=== PATIENT | female | born 1945 | race Caucasian/White ===

== ENCOUNTER 2020-03-17 13:59 | Inpatient (IN) ==
[2020-03-17] MEDS ORDERED: PIPERACILLIN/TAZOBACTAM 3,375 MG in SODIUM CHLORIDE 0.9% 100 ML IV STA (15:23)
[2020-03-17] MEDS ORDERED: VANCOMYCIN INJ 1,000 MG in SODIUM CHLORIDE 0.9% 250 ML IV STA (15:23)
[2020-03-17] MEDS ORDERED: MEPERIDINE 25 MG/1 ML VIAL IV STA (15:23)
[2020-03-17] MEDS ORDERED: ONDANSETRON 4 MG/2 ML VIAL IV STA (15:23)
[2020-03-17] MEDS ORDERED: SODIUM CHLORIDE 0.9% 1,000 ML IV STA (15:23)
[2020-03-17 16:11] LABS: Basophils % 0.3 % (0.0-0.8); Eosinophils # 0.1 10*3/uL (0.0-0.87); Eosinophils % 0.5 % (0.00-10.9); Hematocrit 40.7 VOL% (35.7-47.0); Immature Granulocytes % 0.4 %; Immature Granulocytes Absolute 0.05 #; Lymphocytes # 2.2 10*3/uL (1.4-4.0); Lymphocytes % 17.1 % (21.3-54.2); Mean Corpuscular HGB Conc 34.4 GM/DL (32-36); Mean Corpuscular Volume 94.7 FL (87-102); Mean Platelet Volume 11.9 FL (9.6-12.0); Monocytes % 8.2 % (1.7-12.7); Neutrophils % 73.5 % (38.7-73.9); Platelet Count 154 T/CUMM (130-400); Red Cell Distribution Width 11.6 % (9.3-17.3); White Blood Count 13.1 T/CUMM (4-12)
[2020-03-17 16:29] LABS: Alanine Aminotransferase 28 U/L (13-56); Albumin 2.9 G/DL (3.4-5.0); Alkaline Phosphatase 169 U/L (45-117); Aspartate Amino Transferase 21 U/L (0-37); Blood Urea Nitrogen 11 MG/DL (7-18); Calcium 8.8 MG/DL (8.5-10.1); Estimated Glom Filtration Rate 65 ML/MIN; Ferritin 153.6 ng/ml (8-252); Glucose 305 MG/DL (74-106); Osmolality,Calculated 275.4 MOS/KG (273-304); Total Protein 7.6 G/DL (6.4-8.3); Troponin I < 0.015 NG/ML (0.00-0.045)
[2020-03-17] MEDS ORDERED: VANCOMYCIN 1,000 MG VIAL ONE (16:51)
[2020-03-17] MEDS ORDERED: POLYETHYLENE GLYCOL POWDER 17 GM PACK PO PRN (18:16)
[2020-03-17] MEDS ORDERED: CHLORHEXIDINE 4% TOP ONE (18:18)
[2020-03-17] MEDS ORDERED: [UNRECOGNIZED DRUG - OTHER] TOP ONE (18:18)
[2020-03-17] MEDS ORDERED: GLUCAGON 1 MG VIAL IM PRN (18:23)
[2020-03-17] MEDS ORDERED: MORPHINE 4 MG/1 ML VIAL IV PRN (18:23)
[2020-03-17] MEDS ORDERED: ONDANSETRON 4 MG/2 ML VIAL IV PRN (18:23)
[2020-03-17] MEDS ORDERED: DEXTROSE 50% 25 GM/50 ML VIAL IV PRN (18:23)
[2020-03-17] MEDS ORDERED: ACETAMINOPHEN 325 MG TABLET PO PRN (18:23)
[2020-03-17] MEDS ORDERED: VANCOMYCIN INJ 1,000 MG in SODIUM CHLORIDE 0.9% 250 ML IV ONE (21:00)
[2020-03-17] MEDS ORDERED: glipiZIDE 5 MG TABLET PO SCH (21:00)
[2020-03-17] MEDS ORDERED: GABAPENTIN 600 MG TABLET PO SCH (21:00)
[2020-03-17] MEDS: cefTRIAXone 2,000 MG in SYRINGE 1 EACH IV SCH (21:49)
[2020-03-17] MEDS: INSULIN GLARGINE 100 UNIT/ML SUBCUT SCH (21:50)
[2020-03-17] MEDS: SODIUM CHLORIDE 0.9% 1,000 ML IV SCH (21:51)
[2020-03-17] MEDS: INSULIN LISPRO 100 UNIT/ML SUBCUT SCH (21:51)
[2020-03-17] MEDS: SIMVASTATIN 10 MG TABLET PO SCH (21:51)
[2020-03-17] MEDS: GABAPENTIN 600 MG TABLET PO SCH (21:51)
[2020-03-18 05:34] LABS: Basophils % 0.3 % (0.0-0.8); Eosinophils # 0.2 10*3/uL (0.0-0.87); Eosinophils % 1.1 % (0.00-10.9); Hematocrit 40.2 VOL% (35.7-47.0); Hemoglobin 13.3 GM/DL (12.0-16.0); Immature Granulocytes % 0.4 %; Immature Granulocytes Absolute 0.06 #; Lymphocytes # 2.7 10*3/uL (1.4-4.0); Lymphocytes % 17.2 % (21.3-54.2); Mean Corpuscular HGB Conc 33.1 GM/DL (32-36); Mean Corpuscular Volume 96.6 FL (87-102); Mean Platelet Volume 11.7 FL (9.6-12.0); Monocytes % 8.4 % (1.7-12.7); Neutrophils % 72.6 % (38.7-73.9); Platelet Count 171 T/CUMM (130-400); Red Blood Count 4.16 MC/CUMM (3.8-5.5); Red Cell Distribution Width 11.5 % (9.3-17.3); White Blood Count 15.9 T/CUMM (4-12)
[2020-03-18 05:56] LABS: Calcium 8.3 MG/DL (8.5-10.1)
[2020-03-18] MEDS: LEVOTHYROXINE 75 MCG TABLET PO SCH (06:30)
[2020-03-18] MEDS: SODIUM CHLORIDE 0.9% 1,000 ML IV SCH ×2 (08:51→21:51)
[2020-03-18] MEDS: NEBIVOLOL 10 MG TABLET PO SCH (08:52)
[2020-03-18] MEDS: INSULIN LISPRO 100 UNIT/ML SUBCUT SCH ×4 (08:52→21:53)
[2020-03-18] MEDS: FEXOFENADINE 180 MG TABLET PO SCH (09:00)
[2020-03-18] MEDS: GABAPENTIN 600 MG TABLET PO SCH ×3 (09:00→21:52)
[2020-03-18] MEDS: ASPIRIN EC 81 MG TABLET PO SCH (09:00)
[2020-03-18] MEDS: LOSARTAN 50 MG TABLET PO SCH (09:00)
[2020-03-18] MEDS ORDERED: DEXTROSE 50% 25 GM/50 ML VIAL IV PRN (10:43)
[2020-03-18] MEDS: MONTELUKAST 10 MG TABLET PO SCH (12:01)
[2020-03-18] MEDS: PANTOPRAZOLE 40 MG TABLET PO SCH (12:01)
[2020-03-18] MEDS: VANCOMYCIN INJ 1,750 MG in SODIUM CHLORIDE 0.9% 500 ML IV SCH (14:35)
[2020-03-18] MEDS: cefTRIAXone 2,000 MG in SYRINGE 1 EACH IV SCH (21:51)
[2020-03-18] MEDS: SIMVASTATIN 10 MG TABLET PO SCH (21:52)
[2020-03-18] MEDS: INSULIN GLARGINE 100 UNIT/ML SUBCUT SCH (21:53)
[2020-03-19 05:22] LABS: Basophils % 0.3 % (0.0-0.8); Eosinophils # 0.2 10*3/uL (0.0-0.87); Eosinophils % 1.5 % (0.00-10.9); Hematocrit 37.8 VOL% (35.7-47.0); Hemoglobin 12.5 GM/DL (12.0-16.0); Immature Granulocytes Absolute 0.11 #; Lymphocytes # 2.8 10*3/uL (1.4-4.0); Lymphocytes % 24.2 % (21.3-54.2); Mean Corpuscular HGB Conc 33.1 GM/DL (32-36); Mean Corpuscular Volume 96.9 FL (87-102); Monocytes % 10.2 % (1.7-12.7); Neutrophils % 62.8 % (38.7-73.9); Platelet Count 179 T/CUMM (130-400); Red Cell Distribution Width 11.6 % (9.3-17.3); White Blood Count 11.5 T/CUMM (4-12)
[2020-03-19 05:50] LABS: Calcium 7.8 MG/DL (8.5-10.1); Osmolality,Calculated 278.5 MOS/KG (273-304)
[2020-03-19] MEDS: LEVOTHYROXINE 75 MCG TABLET PO SCH (06:51)
[2020-03-19] MEDS ORDERED: DIAZEPAM 5 MG TABLET PO ONE (07:12)
[2020-03-19] MEDS: SODIUM CHLORIDE 0.9% 1,000 ML IV SCH ×3 (07:22→22:03)
[2020-03-19] MEDS: INSULIN LISPRO 100 UNIT/ML SUBCUT SCH ×4 (07:40→21:21)
[2020-03-19] MEDS ORDERED: BUPIVACAINE MPF 0.25% 30 ML VIAL ONE (08:08)
[2020-03-19] MEDS ORDERED: LIDOCAINE 1%/EPI INJ 20 ML VIAL ONE (08:08)
[2020-03-19] MEDS ORDERED: propofoL 200 MG/20 ML VIAL IV ONE (09:11)
[2020-03-19] MEDS ORDERED: LIDOCAINE 2% 5 ML VIAL ONE (09:12)
[2020-03-19] MEDS ORDERED: fentaNYL 100 MCG/2 ML VIAL ONE (09:12)
[2020-03-19] MEDS: GABAPENTIN 600 MG TABLET PO SCH ×3 (09:23→21:19)
[2020-03-19] MEDS: FEXOFENADINE 180 MG TABLET PO SCH (09:23)
[2020-03-19] MEDS: ASPIRIN EC 81 MG TABLET PO SCH (09:23)
[2020-03-19] MEDS: PANTOPRAZOLE 40 MG TABLET PO SCH (09:23)
[2020-03-19] MEDS: MONTELUKAST 10 MG TABLET PO SCH (09:24)
[2020-03-19] MEDS: LOSARTAN 50 MG TABLET PO SCH (10:05)
[2020-03-19] MEDS: NEBIVOLOL 10 MG TABLET PO SCH (10:05)
[2020-03-19] MEDS: VANCOMYCIN INJ 1,750 MG in SODIUM CHLORIDE 0.9% 500 ML IV SCH (10:07)
[2020-03-19 14:01] LABS: Apearance,Urine Slightly Hazy (Clear); Bacteria,Urine Occasional /HPF (Few); Bilirubin,Urine Negative (Negative); Blood, Urine Moderate mg/dL (Negative); Glucose,Urine (UA) 50 mg/dL (Negative); Ketones,Urine 5 mg/dL (Negative); Mucus,Urine Few /LPF (Occasional); Nitrite,Urine Negative (Negative); Protein,Urine Negative; RBC,Urine 21 /HPF (0-4); Squamous Epithelial Cell,Urine Occasional /HPF (0-10); Urine Color Yellow (Yellow); Urine Specific Gravity 1.013 (1.001-1.035); WBC,Urine 56 /HPF (0-6)
[2020-03-19] MEDS: SIMVASTATIN 10 MG TABLET PO SCH (21:19)
[2020-03-19] MEDS: cefTRIAXone 2,000 MG in SYRINGE 1 EACH IV SCH (21:20)
[2020-03-19] MEDS: INSULIN GLARGINE 100 UNIT/ML SUBCUT SCH (21:21)
[2020-03-20] MEDS: VANCOMYCIN INJ 1,750 MG in SODIUM CHLORIDE 0.9% 500 ML IV SCH (03:18)
[2020-03-20] MEDS: LEVOTHYROXINE 75 MCG TABLET PO SCH (06:11)
[2020-03-20] MEDS: SODIUM CHLORIDE 0.9% 1,000 ML IV SCH (06:19)
[2020-03-20] MEDS: INSULIN LISPRO 100 UNIT/ML SUBCUT SCH ×2 (07:11→11:29)
[2020-03-20 07:22] LABS: Basophils % 0.4 % (0.0-0.8); Eosinophils # 0.2 10*3/uL (0.0-0.87); Eosinophils % 2.8 % (0.00-10.9); Hematocrit 36.8 VOL% (35.7-47.0); Hemoglobin 12.4 GM/DL (12.0-16.0); Immature Granulocytes % 0.4 %; Immature Granulocytes Absolute 0.03 #; Lymphocytes # 2.2 10*3/uL (1.4-4.0); Mean Corpuscular HGB Conc 33.7 GM/DL (32-36); Mean Corpuscular Volume 95.1 FL (87-102); Mean Platelet Volume 11.6 FL (9.6-12.0); Monocytes % 9.8 % (1.7-12.7); Neutrophils % 58.6 % (38.7-73.9); Platelet Count 184 T/CUMM (130-400); Red Blood Count 3.87 MC/CUMM (3.8-5.5); Red Cell Distribution Width 11.7 % (9.3-17.3); White Blood Count 7.9 T/CUMM (4-12)
[2020-03-20 07:49] LABS: Osmolality,Calculated 281.3 MOS/KG (273-304); Thyroid Stimulating Hormone 5.44 uIU/ml (0.358-3.74)
[2020-03-20] MEDS ORDERED: traMADol 50 MG TABLET PO PRN (08:47)
[2020-03-20] MEDS: NEBIVOLOL 10 MG TABLET PO SCH (08:56)
[2020-03-20] MEDS: LOSARTAN 50 MG TABLET PO SCH (08:56)
[2020-03-20] MEDS: GABAPENTIN 600 MG TABLET PO SCH (08:57)
[2020-03-20] MEDS: PANTOPRAZOLE 40 MG TABLET PO SCH (08:57)
[2020-03-20] MEDS: MONTELUKAST 10 MG TABLET PO SCH (08:57)
[2020-03-20] MEDS: ASPIRIN EC 81 MG TABLET PO SCH (08:57)
[2020-03-20] MEDS: FEXOFENADINE 180 MG TABLET PO SCH (08:57)
[2020-03-20 11:37] VITALS: BP 138/79
[2020-03-21] MEDS ORDERED: EXENATIDE MICROSPHERES 2 MG SUBCUT SCH (09:00)
== END 2020-03-20 14:57 | disposition home or self-care (01) | DRG 264 ==
LOC: N.ED 13:59 → N.EDINP 13:59 → N.3E 20:07
PROVIDERS: ADMIT Internal Medicine; ATTEND Internal Medicine

== ENCOUNTER 2021-03-31 14:44 | Observation (INO) ==
[2021-03-31] MEDS ORDERED: MORPHINE 2 MG/1 ML SYRINGE IV STA (18:47)
[2021-03-31 20:48] LABS: Basophils % 0.4 % (0.0-0.8); Eosinophils # 0.1 10*3/uL (0.0-0.87); Eosinophils % 1.6 % (0.00-10.9); Hematocrit 40.7 VOL% (35.7-47.0); Hemoglobin 13.6 GM/DL (12.0-16.0); Immature Granulocytes % 0.3 %; Immature Granulocytes Absolute 0.02 #; Lymphocytes # 1.9 10*3/uL (1.4-4.0); Lymphocytes % 28.5 % (21.3-54.2); Mean Corpuscular HGB Conc 33.4 GM/DL (32-36); Mean Corpuscular Volume 95.1 FL (87-102); Monocytes % 7.5 % (1.7-12.7); Neutrophils % 61.7 % (38.7-73.9); Platelet Count 174 T/CUMM (130-400); Red Blood Count 4.28 MC/CUMM (3.8-5.5); Red Cell Distribution Width 12.4 % (9.3-17.3); White Blood Count 6.7 T/CUMM (4-12)
[2021-03-31 21:12] LABS: Albumin 3.1 G/DL (3.4-5.0); Calcium 8.7 MG/DL (8.5-10.1); Total Protein 7.7 G/DL (6.4-8.2)
[2021-04-01] MEDS ORDERED: ONDANSETRON 4 MG/2 ML VIAL IV PRN (02:51)
[2021-04-01] MEDS ORDERED: DOCUSATE SODIUM 100 MG CAPSULE PO PRN (02:51)
[2021-04-01] MEDS ORDERED: MORPHINE 2 MG/1 ML SYRINGE IV PRN (02:51)
[2021-04-01] MEDS ORDERED: ACETAMINOPHEN 325 MG TABLET PO PRN (02:51)
[2021-04-01] MEDS ORDERED: GLUCAGON 1 MG VIAL IM PRN (02:51)
[2021-04-01] MEDS ORDERED: DEXTROSE 50% 25 GM/50 ML VIAL IV PRN (02:51)
[2021-04-01] MEDS ORDERED: POLYETHYLENE GLYCOL POWDER 17 GM PACK PO PRN (02:58)
[2021-04-01] MEDS ORDERED: traMADol 50 MG TABLET PO PRN ×2 (02:58→10:15)
[2021-04-01 04:29] LABS: Basophils % 0.5 % (0.0-0.8); Eosinophils # 0.1 10*3/uL (0.0-0.87); Hematocrit 35.8 VOL% (35.7-47.0); Hemoglobin 12.2 GM/DL (12.0-16.0); Immature Granulocytes % 0.3 %; Immature Granulocytes Absolute 0.02 #; Lymphocytes # 1.9 10*3/uL (1.4-4.0); Lymphocytes % 32.7 % (21.3-54.2); Mean Corpuscular HGB Conc 34.1 GM/DL (32-36); Mean Corpuscular Volume 94.2 FL (87-102); Monocytes % 8.3 % (1.7-12.7); Neutrophils % 56.2 % (38.7-73.9); Platelet Count 164 T/CUMM (130-400); Red Cell Distribution Width 12.3 % (9.3-17.3); White Blood Count 5.9 T/CUMM (4-12)
[2021-04-01 04:52] LABS: Albumin 2.7 G/DL (3.4-5.0); Bilirubin,Total 1.1 MG/DL (0.20-1.00); Calcium 8.5 MG/DL (8.5-10.1); Osmolality,Calculated 273.1 MOS/KG (273-304); Potassium 3.8 MMOL/L (3.5-5.1); Total Protein 6.9 G/DL (6.4-8.2)
[2021-04-01 07:58] LABS: PT Patient Result 11.3 SECS (10.5-12.0)
[2021-04-01] MEDS: INSULIN LISPRO 100 UNIT/ML SUBCUT SCH ×4 (08:45→21:30)
[2021-04-01] MEDS ORDERED: GABAPENTIN 300 MG CAPSULE PO SCH ×2 (09:00)
[2021-04-01] MEDS ORDERED: SULFAMETHOX/TRIMETHOPRIM 800-160 MG TABLET PO SCH (09:00)
[2021-04-01] MEDS ORDERED: ENOXAPARIN 40 MG/0.4 ML SYRINGE SUBCUT SCH (09:00)
[2021-04-01] MEDS ORDERED: FEXOFENADINE 180 MG TABLET PO SCH (09:00)
[2021-04-01 10:17] LABS: Cancer Antigen 19-9 8.85 U/ML (0-35); Carcinoembryonic Antigen 2.3 NG/ML (0.0-5.0)
[2021-04-01 10:36] LABS: Hepatitis B Core IgM Quant < 0.05 Index; Hepatitis B Surface Ag Quant < 0.10 Index; Hepatitis B Surface Ag Result Non-Reactive (NonReactive); Hepatitis C Virus Ab Quant 0.14 Index; Hepatitis C Virus Ab Result Non-Reactive (NonReactive)
[2021-04-01] MEDS: GABAPENTIN 300 MG CAPSULE PO SCH ×2 (11:02→11:21)
[2021-04-01] MEDS: LOSARTAN 50 MG TABLET PO SCH (11:20)
[2021-04-01] MEDS: MONTELUKAST 10 MG TABLET PO SCH (11:20)
[2021-04-01] MEDS: PANTOPRAZOLE 40 MG TABLET PO SCH (11:21)
[2021-04-01] MEDS: LEVOTHYROXINE 125 MCG TABLET PO SCH (11:21)
[2021-04-01] MEDS: NEBIVOLOL 10 MG TABLET PO SCH (11:21)
[2021-04-01 18:29] LABS: % Iron Saturation 27.5 % (18-50)
[2021-04-01] MEDS ORDERED: GABAPENTIN 400 MG CAPSULE PO SCH (21:00)
[2021-04-02] MEDS ORDERED: LACTATED RINGERS 1,000 ML IV SCH (07:00)
[2021-04-02] MEDS: GABAPENTIN 300 MG CAPSULE PO SCH ×2 (07:44→12:00)
[2021-04-02] MEDS: INSULIN LISPRO 100 UNIT/ML SUBCUT SCH ×3 (07:44→16:33)
[2021-04-02] MEDS: LOSARTAN 50 MG TABLET PO SCH (08:20)
[2021-04-02] MEDS: PANTOPRAZOLE 40 MG TABLET PO SCH (08:20)
[2021-04-02] MEDS: MONTELUKAST 10 MG TABLET PO SCH (08:20)
[2021-04-02] MEDS: NEBIVOLOL 10 MG TABLET PO SCH (08:20)
[2021-04-02] MEDS: LEVOTHYROXINE 125 MCG TABLET PO SCH (08:21)
[2021-04-02 16:12] VITALS: BP 136/55
[2021-04-02] MEDS ORDERED: glipiZIDE 5 MG TABLET PO SCH (21:00)
[2021-04-04 13:20] LABS: Antinuclear Ab, S 0.7 U
[2021-04-04 13:41] LABS: Mitochondrial Antibody (M2) <0.1 U
[2021-04-04 13:51] LABS: Smooth Muscle Antibody Negative (Negative)
== END 2021-04-02 16:40 | disposition home or self-care (01) ==
LOC: N.EDINP 14:44 → N.ED 14:44 → SUATTDRO 04-01 02:13 → N.EDINP 04-01 09:40 → N.4E 04-01 10:03
PROVIDERS: ADMIT Internal Medicine; ATTEND Internal Medicine

== ENCOUNTER 2021-05-19 14:16 | Inpatient (IN) ==
[2021-05-19] MEDS ORDERED: SODIUM CHLORIDE 0.9% 1,000 ML IV STA ×3 (14:46→17:29)
[2021-05-19 15:18] LABS: ABG Base Excess 1.8 MMOL/L (-2.5-2.5); ABG HCO3 25.9 MMOL/L (20-26); ABG Oxygen Saturation 92.8 % (95-100); ABG PCO2 35.6 MM HG (35-48); ABG PH 7.459 (7.35-7.45); ABG PO2 60.3 MM HG (80-95)
[2021-05-19] MEDS ORDERED: ACETAMINOPHEN 650 MG SUPP RECTAL STA (15:24)
[2021-05-19 16:16] LABS: Basophils % 0.2 % (0.0-0.8); Hematocrit 40.4 VOL% (35.7-47.0); Hemoglobin 13.5 GM/DL (12.0-16.0); Immature Granulocytes % 0.7 %; Immature Granulocytes Absolute 0.12 #; Lymphocytes # 0.5 10*3/uL (1.4-4.0); Lymphocytes % 2.8 % (21.3-54.2); Mean Corpuscular HGB Conc 33.4 GM/DL (32-36); Mean Corpuscular Volume 96.7 FL (87-102); Mean Platelet Volume 11.1 FL (9.6-12.0); Monocytes % 7.2 % (1.7-12.7); Neutrophils % 89.1 % (38.7-73.9); Platelet Count 200 T/CUMM (130-400); Red Blood Count 4.18 MC/CUMM (3.8-5.5); Red Cell Distribution Width 12.3 % (9.3-17.3); White Blood Count 17.1 T/CUMM (4-12)
[2021-05-19 16:36] LABS: INR 1.1; PT Patient Result 12.4 SECS (10.5-12.0)
[2021-05-19 16:39] LABS: Bacteria,Urine Many /HPF (Few); Bilirubin,Urine Negative (Negative); Blood, Urine Large mg/dL (Negative); Glucose,Urine (UA) Negative (Negative); Hyaline Casts,Urine 43 /LPF (0-3); Ketones,Urine 20 mg/dL (Negative); Mucus,Urine Many /LPF (Occasional); Nitrite,Urine Negative (Negative); Protein,Urine 100 MG/DL; RBC,Urine 11 /HPF (0-4); Urine Appearance Slightly Hazy (Clear); Urine Color Amber (Yellow); Urine Specific Gravity 1.017 (1.001-1.035)
[2021-05-19 16:40] LABS: Bilirubin,Total 3.7 MG/DL (0.20-1.00); Calcium 8.8 MG/DL (8.5-10.1); Osmolality,Calculated 277.1 MOS/KG (273-304); Potassium 4.2 MMOL/L (3.5-5.1); Total Protein 8.2 G/DL (6.4-8.2)
[2021-05-19 16:48] LABS: Barbiturates Screen,Urine Negative (Negative); Benzodiazepines Screen,Urine Negative (Negative); Cannabinoid Screen,Urine Negative (Negative); Opiate Screen,Urine Positive (Negative); Phencyclidine Screen,Urine Negative (Negative)
[2021-05-19] MEDS ORDERED: VANCOMYCIN INJ 1,250 MG in SODIUM CHLORIDE 0.9% 250 ML IV STA (17:27)
[2021-05-19] MEDS: PIPERACILLIN/TAZOBACTAM 3,375 MG in SODIUM CHLORIDE 0.9% 100 ML IV SCH (17:59)
[2021-05-19] MEDS ORDERED: LABETALOL 20 MG/4 ML SYRINGE IV STA (18:10)
[2021-05-19] MEDS ORDERED: LABETALOL 20 MG/4 ML SYRINGE IV PRN (18:11)
[2021-05-19] MEDS ORDERED: ONDANSETRON 4 MG/2 ML VIAL IV PRN (18:14)
[2021-05-19] MEDS ORDERED: GLUCAGON 1 MG VIAL IM PRN (18:14)
[2021-05-19] MEDS ORDERED: DEXTROSE 50% 25 GM/50 ML VIAL IV PRN (18:14)
[2021-05-19] MEDS: ENOXAPARIN 40 MG/0.4 ML SYRINGE SUBCUT SCH (18:49)
[2021-05-19 19:26] LABS: Band Neutrophils 3 % (0-10); Lymphocytes 12 % (20-55); Segmented Neutrophils 77 % (50-85); Total Cells Counted 100
[2021-05-19 19:29] LABS: Atypical Lymphocytes Few; Macrocytosis Slight; Platelet Estimate Normal
[2021-05-19] MEDS: LACTULOSE 20 GM/30 ML UDCUP PO SCH (21:51)
[2021-05-19] MEDS: SODIUM CHLORIDE 0.45% 1,000 ML IV SCH (22:24)
[2021-05-20] MEDS: RIFAXIMIN 550 MG TABLET PO SCH ×3 (00:19→23:28)
[2021-05-20] MEDS: PIPERACILLIN/TAZOBACTAM 3,375 MG in SODIUM CHLORIDE 0.9% 100 ML IV SCH ×3 (02:20→17:18)
[2021-05-20] MEDS ORDERED: VANCOMYCIN INJ 2,000 MG in SODIUM CHLORIDE 0.9% 500 ML IV SCH (05:00)
[2021-05-20 05:27] LABS: Basophils % 0.1 % (0.0-0.8); Hematocrit 37.6 VOL% (35.7-47.0); Hemoglobin 12.4 GM/DL (12.0-16.0); Immature Granulocytes Absolute 0.15 #; Lymphocytes # 0.7 10*3/uL (1.4-4.0); Lymphocytes % 4.8 % (21.3-54.2); Mean Corpuscular Volume 94.9 FL (87-102); Mean Platelet Volume 10.9 FL (9.6-12.0); Monocytes % 9.9 % (1.7-12.7); Neutrophils % 84.2 % (38.7-73.9); Platelet Count 186 T/CUMM (130-400); Red Blood Count 3.96 MC/CUMM (3.8-5.5); Red Cell Distribution Width 12.3 % (9.3-17.3); White Blood Count 15.2 T/CUMM (4-12)
[2021-05-20 05:47] LABS: Albumin 2.5 G/DL (3.4-5.0); Bilirubin,Total 3.2 MG/DL (0.20-1.00); Calcium 8.3 MG/DL (8.5-10.1); Total Protein 7.2 G/DL (6.4-8.2)
[2021-05-20 05:54] LABS: Hypochromasia Slight; Lymphocytes 7 % (20-55); Microcytosis Slight; Platelet Estimate Adequate; Segmented Neutrophils 88 % (50-85); Total Cells Counted 100
[2021-05-20] MEDS ORDERED: LEVOTHYROXINE 100 MCG VIAL IV SCH (07:00)
[2021-05-20] MEDS: SODIUM CHLORIDE 0.45% 1,000 ML IV SCH (08:47)
[2021-05-20] MEDS ORDERED: ACETAMINOPHEN 650 MG SUPP RECTAL PRN (08:56)
[2021-05-20] MEDS: LACTULOSE 20 GM/30 ML UDCUP PO SCH ×2 (10:23→23:27)
[2021-05-20] MEDS: PANTOPRAZOLE 40 MG VIAL IV SCH (10:26)
[2021-05-20] MEDS ORDERED: GLUCAGON 1 MG VIAL IM PRN (16:06)
[2021-05-20] MEDS ORDERED: DEXTROSE 50% 25 GM/50 ML VIAL IV PRN (16:06)
[2021-05-20] MEDS: ENOXAPARIN 40 MG/0.4 ML SYRINGE SUBCUT SCH (19:05)
[2021-05-20] MEDS ORDERED: KETOROLAC 30 MG/1 ML VIAL IV ONE (19:13)
[2021-05-20] MEDS ORDERED: METOPROLOL TARTRATE 5 MG/5 ML VIAL IV ONE ×2 (20:13→20:53)
[2021-05-20] MEDS ORDERED: METOPROLOL TARTRATE 25 MG TABLET PO ONE (20:37)
[2021-05-21] MEDS ORDERED: DILTIAZEM 25 MG/5 ML VIAL IV ONE (00:09)
[2021-05-21] MEDS: DILTIAZEM INJ 100 MG in SODIUM CHLORIDE 0.9% 100 ML IV SCH ×2 (01:36→08:22)
[2021-05-21 05:45] LABS: Albumin 2.2 G/DL (3.4-5.0); Calcium 8.1 MG/DL (8.5-10.1); Osmolality,Calculated 274.2 MOS/KG (273-304); Potassium 4.1 MMOL/L (3.5-5.1)
[2021-05-21] MEDS: PIPERACILLIN/TAZOBACTAM 3,375 MG in SODIUM CHLORIDE 0.9% 100 ML IV SCH ×3 (07:28→16:50)
[2021-05-21 07:53] LABS: Basophils % 0.2 % (0.0-0.8); Hematocrit 37.1 VOL% (35.7-47.0); Hemoglobin 12.1 GM/DL (12.0-16.0); Immature Granulocytes % 0.6 %; Immature Granulocytes Absolute 0.06 #; Lymphocytes # 1.1 10*3/uL (1.4-4.0); Lymphocytes % 10.7 % (21.3-54.2); Mean Corpuscular HGB Conc 32.6 GM/DL (32-36); Mean Corpuscular Volume 96.1 FL (87-102); Mean Platelet Volume 11.2 FL (9.6-12.0); Monocytes % 10.6 % (1.7-12.7); Neutrophils % 77.9 % (38.7-73.9); Platelet Count 171 T/CUMM (130-400); Red Blood Count 3.86 MC/CUMM (3.8-5.5); Red Cell Distribution Width 12.6 % (9.3-17.3); White Blood Count 10.6 T/CUMM (4-12)
[2021-05-21 08:44] LABS: Hypochromasia 1+; Lymphocytes 7 % (20-55); Microcytosis 1+; Platelet Estimate Adequate; Segmented Neutrophils 88 % (50-85); Total Cells Counted 100
[2021-05-21] MEDS: SODIUM CHLORIDE 0.45% 1,000 ML IV SCH ×2 (09:07→15:25)
[2021-05-21] MEDS: RIFAXIMIN 550 MG TABLET PO SCH ×2 (09:18→21:48)
[2021-05-21] MEDS: LACTULOSE 20 GM/30 ML UDCUP PO SCH ×2 (09:18→21:49)
[2021-05-21] MEDS: LEVOTHYROXINE 100 MCG VIAL IV SCH (09:22)
[2021-05-21] MEDS: PANTOPRAZOLE 40 MG VIAL IV SCH (09:24)
[2021-05-21] MEDS: METOPROLOL TARTRATE 25 MG TABLET PO SCH ×2 (15:06→21:48)
[2021-05-21] MEDS ORDERED: MAGNESIUM SULF RIDER 2 GM/50 ML PREMIX IV ONE (15:38)
[2021-05-21] MEDS ORDERED: DILTIAZEM CD 120 MG CAPSULE PO ONE (15:40)
[2021-05-21] MEDS: RIVAROXABAN 20 MG TABLET PO SCH (16:49)
[2021-05-21] MEDS ORDERED: METOPROLOL TARTRATE 5 MG/5 ML VIAL IV SCH (18:00)
[2021-05-21] MEDS ORDERED: ENOXAPARIN 120 MG/0.8 ML SYRINGE SUBCUT SCH (21:00)
[2021-05-22] MEDS: PIPERACILLIN/TAZOBACTAM 3,375 MG in SODIUM CHLORIDE 0.9% 100 ML IV SCH ×3 (00:55→17:59)
[2021-05-22] MEDS: SODIUM CHLORIDE 0.45% 1,000 ML IV SCH (04:55)
[2021-05-22 04:59] LABS: Basophils % 0.2 % (0.0-0.8); Eosinophils % 0.1 % (0.00-10.9); Hemoglobin 12.1 GM/DL (12.0-16.0); Immature Granulocytes % 0.5 %; Immature Granulocytes Absolute 0.05 #; Lymphocytes # 1.3 10*3/uL (1.4-4.0); Lymphocytes % 13.8 % (21.3-54.2); Mean Corpuscular HGB Conc 32.7 GM/DL (32-36); Mean Corpuscular Volume 95.4 FL (87-102); Monocytes % 11.8 % (1.7-12.7); Neutrophils % 73.6 % (38.7-73.9); Platelet Count 161 T/CUMM (130-400); Red Blood Count 3.88 MC/CUMM (3.8-5.5); Red Cell Distribution Width 12.5 % (9.3-17.3); White Blood Count 9.5 T/CUMM (4-12)
[2021-05-22 05:21] LABS: Albumin 2.2 G/DL (3.4-5.0); Bilirubin,Total 1.1 MG/DL (0.20-1.00); Calcium 7.9 MG/DL (8.5-10.1); Osmolality,Calculated 276.2 MOS/KG (273-304); Potassium 3.8 MMOL/L (3.5-5.1); Total Protein 6.9 G/DL (6.4-8.2)
[2021-05-22] MEDS: LEVOTHYROXINE 100 MCG VIAL IV SCH (06:01)
[2021-05-22] MEDS ORDERED: ASPIRIN EC 81 MG TABLET PO SCH (09:00)
[2021-05-22] MEDS: METOPROLOL TARTRATE 50 MG TABLET PO SCH ×2 (09:56→20:55)
[2021-05-22] MEDS: DILTIAZEM CD 120 MG CAPSULE PO SCH (09:56)
[2021-05-22] MEDS: RIFAXIMIN 550 MG TABLET PO SCH ×2 (09:56→20:54)
[2021-05-22] MEDS: LACTULOSE 20 GM/30 ML UDCUP PO SCH ×2 (09:57→20:55)
[2021-05-22] MEDS: PANTOPRAZOLE 40 MG VIAL IV SCH (09:58)
[2021-05-22] MEDS: INSULIN LISPRO 100 UNIT/ML SUBCUT SCH ×3 (13:11→20:55)
[2021-05-22] MEDS: RIVAROXABAN 20 MG TABLET PO SCH (17:49)
[2021-05-23] MEDS: SODIUM CHLORIDE 0.45% 1,000 ML IV SCH ×2 (01:38→05:55)
[2021-05-23] MEDS: PIPERACILLIN/TAZOBACTAM 3,375 MG in SODIUM CHLORIDE 0.9% 100 ML IV SCH ×3 (01:47→17:21)
[2021-05-23 05:59] LABS: Basophils % 0.3 % (0.0-0.8); Eosinophils # 0.1 10*3/uL (0.0-0.87); Hematocrit 38.5 VOL% (35.7-47.0); Hemoglobin 12.6 GM/DL (12.0-16.0); Immature Granulocytes % 0.7 %; Immature Granulocytes Absolute 0.07 #; Lymphocytes # 1.3 10*3/uL (1.4-4.0); Lymphocytes % 12.7 % (21.3-54.2); Mean Corpuscular HGB Conc 32.7 GM/DL (32-36); Mean Corpuscular Volume 96.5 FL (87-102); Mean Platelet Volume 11.2 FL (9.6-12.0); Monocytes % 11.1 % (1.7-12.7); Neutrophils % 74.2 % (38.7-73.9); Platelet Count 179 T/CUMM (130-400); Red Blood Count 3.99 MC/CUMM (3.8-5.5); Red Cell Distribution Width 12.5 % (9.3-17.3); White Blood Count 10.1 T/CUMM (4-12)
[2021-05-23] MEDS: LEVOTHYROXINE 100 MCG VIAL IV SCH (06:08)
[2021-05-23 06:25] LABS: Calcium 7.9 MG/DL (8.5-10.1); Potassium 3.4 MMOL/L (3.5-5.1)
[2021-05-23] MEDS ORDERED: POTASSIUM CHLORIDE 20 MEQ TABLET PO ONE (08:18)
[2021-05-23] MEDS: DILTIAZEM CD 120 MG CAPSULE PO SCH (09:21)
[2021-05-23] MEDS: RIFAXIMIN 550 MG TABLET PO SCH ×2 (09:21→20:36)
[2021-05-23] MEDS: METOPROLOL TARTRATE 50 MG TABLET PO SCH ×2 (09:21→20:36)
[2021-05-23] MEDS: LACTULOSE 20 GM/30 ML UDCUP PO SCH ×2 (09:22→20:36)
[2021-05-23] MEDS: PANTOPRAZOLE 40 MG VIAL IV SCH (09:22)
[2021-05-23] MEDS: INSULIN LISPRO 100 UNIT/ML SUBCUT SCH ×4 (09:33→20:36)
[2021-05-23] MEDS: RIVAROXABAN 20 MG TABLET PO SCH (17:21)
[2021-05-24] MEDS: PIPERACILLIN/TAZOBACTAM 3,375 MG in SODIUM CHLORIDE 0.9% 100 ML IV SCH ×2 (01:50→09:10)
[2021-05-24] MEDS: SODIUM CHLORIDE 0.45% 1,000 ML IV SCH ×2 (01:51→06:15)
[2021-05-24] MEDS: LEVOTHYROXINE 100 MCG VIAL IV SCH (06:33)
[2021-05-24] MEDS: INSULIN LISPRO 100 UNIT/ML SUBCUT SCH ×2 (08:59→13:51)
[2021-05-24] MEDS ORDERED: POTASSIUM CHLORIDE 20 MEQ TABLET PO SCH (09:00)
[2021-05-24] MEDS: METOPROLOL TARTRATE 50 MG TABLET PO SCH (09:02)
[2021-05-24] MEDS: RIFAXIMIN 550 MG TABLET PO SCH (09:02)
[2021-05-24] MEDS: DILTIAZEM CD 120 MG CAPSULE PO SCH (09:03)
[2021-05-24] MEDS: LACTULOSE 20 GM/30 ML UDCUP PO SCH (09:07)
[2021-05-24] MEDS: PANTOPRAZOLE 40 MG VIAL IV SCH (09:10)
[2021-05-24 13:59] VITALS: BP 140/83
== END 2021-05-24 16:28 | disposition home or self-care (01) | DRG 872 ==
LOC: EDUNIT# → N.ED 14:16 → N.EDINP 18:06 → N.3E 22:04 → N.TELES 05-21 01:09
PROVIDERS: ADMIT Internal Medicine; ATTEND Internal Medicine

== ENCOUNTER 2021-07-07 16:27 | Inpatient (IN) ==
[2021-07-07] MEDS ORDERED: HYDROmorphone 2 MG/1 ML VIAL IV STA (17:07)
[2021-07-07] MEDS ORDERED: ONDANSETRON 4 MG/2 ML VIAL IV ONE (17:07)
[2021-07-07] MEDS ORDERED: ONDANSETRON 4 MG/2 ML VIAL ONE (17:08)
[2021-07-07] MEDS ORDERED: HYDROmorphone 2 MG/1 ML VIAL ONE (17:09)
[2021-07-07 17:43] LABS: Basophils % 0.4 % (0.0-0.8); Eosinophils # 0.1 10*3/uL (0.0-0.87); Eosinophils % 1.6 % (0.00-10.9); Hematocrit 40.5 VOL% (35.7-47.0); Immature Granulocytes % 0.2 %; Immature Granulocytes Absolute 0.01 #; Lymphocytes # 1.5 10*3/uL (1.4-4.0); Lymphocytes % 26.3 % (21.3-54.2); Mean Corpuscular HGB Conc 32.1 GM/DL (32-36); Mean Corpuscular Volume 95.5 FL (87-102); Mean Platelet Volume 10.8 FL (9.6-12.0); Monocytes % 9.3 % (1.7-12.7); Neutrophils % 62.2 % (38.7-73.9); Platelet Count 248 T/CUMM (130-400); Red Blood Count 4.24 MC/CUMM (3.8-5.5); Red Cell Distribution Width 14.6 % (9.3-17.3); White Blood Count 5.7 T/CUMM (4-12)
[2021-07-07 17:52] LABS: INR 1.2; PT Patient Result 13.6 SECS (10.5-12.0)
[2021-07-07 18:03] LABS: Albumin 2.2 G/DL (3.4-5.0); Bilirubin,Total 1.4 MG/DL (0.20-1.00); Calcium 8.1 MG/DL (8.5-10.1); Osmolality,Calculated 278.4 MOS/KG (273-304); Potassium 3.9 MMOL/L (3.5-5.1); Total Protein 6.7 G/DL (6.4-8.2)
[2021-07-07] MEDS ORDERED: hydrALAZINE 20 MG/1 ML VIAL IV PRN (20:34)
[2021-07-07] MEDS ORDERED: ONDANSETRON 4 MG/2 ML VIAL IV PRN (20:34)
[2021-07-07] MEDS ORDERED: MORPHINE 2 MG/1 ML SYRINGE IV PRN (20:34)
[2021-07-07] MEDS ORDERED: GLUCAGON 1 MG VIAL IM PRN (20:34)
[2021-07-07] MEDS ORDERED: DEXTROSE 50% 25 GM/50 ML VIAL IV PRN (20:34)
[2021-07-07] MEDS ORDERED: cefTRIAXone 1,000 MG in SODIUM CHLORIDE 0.9% 100 ML IV SCH (21:00)
[2021-07-07] MEDS ORDERED: LEVOFLOXACIN INJ 500 MG/100 ML PREMIX IV SCH (21:00)
[2021-07-07] MEDS: LEVOFLOXACIN INJ 500 MG/100 ML PREMIX IV SCH (21:46)
[2021-07-07 22:23] LABS: Bilirubin,Urine Negative (Negative); Blood, Urine Moderate mg/dL (Negative); Glucose,Urine (UA) Negative (Negative); Ketones,Urine 5 mg/dL (Negative); Mucus,Urine Many /LPF (Occasional); Nitrite,Urine Positive (Negative); Protein,Urine 100 MG/DL; RBC,Urine 14 /HPF (0-4); Squamous Epithelial Cell,Urine Few /HPF (0-10); Urine Appearance CLOUDY (Clear); Urine Color Amber (Yellow); Urine Specific Gravity 1.016 (1.001-1.035)
[2021-07-08] MEDS: INSULIN REGULAR 100 UNIT/ML SUBCUT SCH ×3 (00:28→21:09)
[2021-07-08] MEDS: LACTULOSE 20 GM/30 ML UDCUP PO SCH ×3 (00:28→20:54)
[2021-07-08] MEDS: METOPROLOL TARTRATE 50 MG TABLET PO SCH ×3 (00:29→20:52)
[2021-07-08] MEDS: RIFAXIMIN 550 MG TABLET PO SCH ×3 (00:29→20:52)
[2021-07-08] MEDS: ALBUTEROL 2.5 MG/3 ML NEB RESP TX SCH ×4 (01:41→19:30)
[2021-07-08 01:48] LABS: Basophils % 0.3 % (0.0-0.8); Eosinophils % 0.3 % (0.00-10.9); Hematocrit 40.6 VOL% (35.7-47.0); Hemoglobin 13.1 GM/DL (12.0-16.0); Immature Granulocytes % 0.4 %; Immature Granulocytes Absolute 0.03 #; Lymphocytes % 12.2 % (21.3-54.2); Mean Corpuscular HGB Conc 32.3 GM/DL (32-36); Mean Corpuscular Volume 96.7 FL (87-102); Mean Platelet Volume 10.6 FL (9.6-12.0); Monocytes % 7.3 % (1.7-12.7); Neutrophils % 79.5 % (38.7-73.9); Platelet Count 249 T/CUMM (130-400); Red Cell Distribution Width 14.5 % (9.3-17.3); White Blood Count 7.9 T/CUMM (4-12)
[2021-07-08 02:08] LABS: Albumin 2.1 G/DL (3.4-5.0); Bilirubin,Total 1.6 MG/DL (0.20-1.00); Calcium 8.3 MG/DL (8.5-10.1); Osmolality,Calculated 276.8 MOS/KG (273-304); Potassium 4.5 MMOL/L (3.5-5.1); Risk Ratio 4.52; Total Protein 7.2 G/DL (6.4-8.2)
[2021-07-08] MEDS: MONTELUKAST 10 MG TABLET PO SCH (09:44)
[2021-07-08] MEDS: DULoxetine 30 MG CAPSULE PO SCH (09:44)
[2021-07-08] MEDS: PANTOPRAZOLE 40 MG TABLET PO SCH (09:45)
[2021-07-08] MEDS: DILTIAZEM CD 120 MG CAPSULE PO SCH (09:45)
[2021-07-08] MEDS: SPIRONOLACTONE 25 MG TABLET PO SCH (09:45)
[2021-07-08] MEDS: DOCUSATE SODIUM 100 MG CAPSULE PO PRN (09:45)
[2021-07-08] MEDS: LEVOTHYROXINE 125 MCG TABLET PO SCH (09:45)
[2021-07-08] MEDS: FEXOFENADINE 180 MG TABLET PO SCH (09:45)
[2021-07-08] MEDS: FUROSEMIDE 40 MG/4 ML VIAL IV SCH ×2 (09:46→16:53)
[2021-07-08] MEDS ORDERED: ALBUMIN 25% 12.5 GM/50 ML VIAL IV ONE (15:54)
[2021-07-08 17:02] LABS: Glucose,Peritoneal Fluid 148 MG/DL; LDH,Peritoneal Fluid 57 U/L
[2021-07-08 17:40] LABS: Neutrophils,Peritoneal Fluid 3 %; RBC,Peritoneal Fluid 46 T/CUMM
[2021-07-08] MEDS: LEVOFLOXACIN INJ 500 MG/100 ML PREMIX IV SCH (20:54)
[2021-07-09] MEDS: ALBUTEROL 2.5 MG/3 ML NEB RESP TX SCH ×4 (00:41→19:20)
[2021-07-09 08:39] LABS: Basophils % 0.1 % (0.0-0.8); Eosinophils # 0.1 10*3/uL (0.0-0.87); Hematocrit 37.9 VOL% (35.7-47.0); Hemoglobin 12.4 GM/DL (12.0-16.0); Immature Granulocytes % 0.4 %; Immature Granulocytes Absolute 0.05 #; Lymphocytes # 0.5 10*3/uL (1.4-4.0); Lymphocytes % 3.7 % (21.3-54.2); Mean Corpuscular HGB Conc 32.7 GM/DL (32-36); Mean Platelet Volume 11.1 FL (9.6-12.0); Monocytes % 5.4 % (1.7-12.7); Neutrophils % 89.4 % (38.7-73.9); Platelet Count 218 T/CUMM (130-400); Red Blood Count 3.99 MC/CUMM (3.8-5.5); Red Cell Distribution Width 14.2 % (9.3-17.3); White Blood Count 12.6 T/CUMM (4-12)
[2021-07-09 09:03] LABS: Hypochromasia Slight; Lymphocytes 3 % (20-55); Microcytosis Slight; Platelet Estimate Adequate; Segmented Neutrophils 93 % (50-85); Total Cells Counted 100
[2021-07-09 09:07] LABS: Bilirubin,Total 1.4 MG/DL (0.20-1.00); Calcium 8.1 MG/DL (8.5-10.1); Potassium 3.7 MMOL/L (3.5-5.1); Total Protein 6.2 G/DL (6.4-8.2)
[2021-07-09] MEDS: LACTULOSE 20 GM/30 ML UDCUP PO SCH ×2 (09:23→20:42)
[2021-07-09] MEDS: DILTIAZEM CD 120 MG CAPSULE PO SCH (09:24)
[2021-07-09] MEDS: RIFAXIMIN 550 MG TABLET PO SCH ×2 (09:24→20:42)
[2021-07-09] MEDS: LEVOTHYROXINE 125 MCG TABLET PO SCH (09:24)
[2021-07-09] MEDS: FEXOFENADINE 180 MG TABLET PO SCH (09:24)
[2021-07-09] MEDS: MULTIVITAMIN (CENTRUM) TABLET PO SCH (09:24)
[2021-07-09] MEDS: PANTOPRAZOLE 40 MG TABLET PO SCH (09:24)
[2021-07-09] MEDS: MONTELUKAST 10 MG TABLET PO SCH (09:24)
[2021-07-09] MEDS: DULoxetine 30 MG CAPSULE PO SCH (09:24)
[2021-07-09] MEDS: METOPROLOL TARTRATE 50 MG TABLET PO SCH ×2 (09:25→20:42)
[2021-07-09] MEDS: SPIRONOLACTONE 25 MG TABLET PO SCH (09:25)
[2021-07-09] MEDS: DOCUSATE SODIUM 100 MG CAPSULE PO PRN (09:25)
[2021-07-09] MEDS: INSULIN REGULAR 100 UNIT/ML SUBCUT SCH ×4 (09:25→21:43)
[2021-07-09] MEDS: FUROSEMIDE 40 MG/4 ML VIAL IV SCH ×2 (09:26→15:40)
[2021-07-09] MEDS ORDERED: ALBUMIN 25% 25 GM/100 ML VIAL IV ONE (15:00)
[2021-07-09] MEDS: DESITIN 4OZ/NYSTATIN 15 GRAM MIXTURE PASTE TOP SCH (20:42)
[2021-07-09] MEDS: LEVOFLOXACIN INJ 500 MG/100 ML PREMIX IV SCH (20:44)
[2021-07-10] MEDS: ALBUTEROL 2.5 MG/3 ML NEB RESP TX SCH ×4 (00:58→19:15)
[2021-07-10 05:45] LABS: Basophils % 0.1 % (0.0-0.8); Eosinophils # 0.5 10*3/uL (0.0-0.87); Eosinophils % 2.4 % (0.00-10.9); Hematocrit 37.4 VOL% (35.7-47.0); Hemoglobin 11.9 GM/DL (12.0-16.0); Immature Granulocytes % 0.9 %; Immature Granulocytes Absolute 0.18 #; Lymphocytes # 0.7 10*3/uL (1.4-4.0); Lymphocytes % 3.3 % (21.3-54.2); Mean Corpuscular HGB Conc 31.8 GM/DL (32-36); Mean Corpuscular Volume 97.4 FL (87-102); Monocytes % 4.3 % (1.7-12.7); Platelet Count 197 T/CUMM (130-400); Red Blood Count 3.84 MC/CUMM (3.8-5.5); White Blood Count 20.6 T/CUMM (4-12)
[2021-07-10 06:16] LABS: Potassium 3.7 MMOL/L (3.5-5.1); Total Protein 6.2 G/DL (6.4-8.2)
[2021-07-10 06:20] LABS: Band Neutrophils 1 % (0-10); Eosinophils 2 % (0-10); Hypochromasia 1+; Lymphocytes 2 % (20-55); Microcytosis 1+; Platelet Estimate Adequate; Segmented Neutrophils 93 % (50-85); Total Cells Counted 100
[2021-07-10] MEDS: FEXOFENADINE 180 MG TABLET PO SCH (08:40)
[2021-07-10] MEDS: METOPROLOL TARTRATE 50 MG TABLET PO SCH ×2 (08:40→21:12)
[2021-07-10] MEDS: PANTOPRAZOLE 40 MG TABLET PO SCH (08:40)
[2021-07-10] MEDS: DILTIAZEM CD 120 MG CAPSULE PO SCH (08:40)
[2021-07-10] MEDS: RIFAXIMIN 550 MG TABLET PO SCH ×2 (08:40→21:12)
[2021-07-10] MEDS: MULTIVITAMIN (CENTRUM) TABLET PO SCH (08:40)
[2021-07-10] MEDS: SPIRONOLACTONE 25 MG TABLET PO SCH (08:40)
[2021-07-10] MEDS: MONTELUKAST 10 MG TABLET PO SCH (08:40)
[2021-07-10] MEDS: DULoxetine 30 MG CAPSULE PO SCH (08:40)
[2021-07-10] MEDS: FUROSEMIDE 40 MG/4 ML VIAL IV SCH ×2 (08:41→15:15)
[2021-07-10] MEDS: LACTULOSE 20 GM/30 ML UDCUP PO SCH ×2 (08:41→21:12)
[2021-07-10] MEDS: LEVOTHYROXINE 125 MCG TABLET PO SCH (08:41)
[2021-07-10] MEDS: DESITIN 4OZ/NYSTATIN 15 GRAM MIXTURE PASTE TOP SCH ×2 (08:43→21:16)
[2021-07-10] MEDS: INSULIN REGULAR 100 UNIT/ML SUBCUT SCH ×5 (08:47→21:12)
[2021-07-10] MEDS: LEVOFLOXACIN INJ 500 MG/100 ML PREMIX IV SCH (21:12)
[2021-07-11] MEDS: ALBUTEROL 2.5 MG/3 ML NEB RESP TX SCH ×4 (00:20→19:51)
[2021-07-11 05:02] LABS: Basophils % 0.1 % (0.0-0.8); Eosinophils # 0.9 10*3/uL (0.0-0.87); Eosinophils % 6.2 % (0.00-10.9); Hematocrit 35.4 VOL% (35.7-47.0); Hemoglobin 11.2 GM/DL (12.0-16.0); Immature Granulocytes % 0.7 %; Lymphocytes # 0.9 10*3/uL (1.4-4.0); Lymphocytes % 6.2 % (21.3-54.2); Mean Corpuscular HGB Conc 31.6 GM/DL (32-36); Mean Corpuscular Volume 97.3 FL (87-102); Mean Platelet Volume 11.1 FL (9.6-12.0); Monocytes % 5.2 % (1.7-12.7); Neutrophils % 81.6 % (38.7-73.9); Platelet Count 164 T/CUMM (130-400); Red Blood Count 3.64 MC/CUMM (3.8-5.5); White Blood Count 13.9 T/CUMM (4-12)
[2021-07-11 05:26] LABS: Albumin 1.9 G/DL (3.4-5.0); Bilirubin,Total 1.6 MG/DL (0.20-1.00); Osmolality,Calculated 272.1 MOS/KG (273-304); Potassium 3.6 MMOL/L (3.5-5.1); Total Protein 5.7 G/DL (6.4-8.2)
[2021-07-11] MEDS: LACTULOSE 20 GM/30 ML UDCUP PO SCH ×2 (09:42→20:38)
[2021-07-11] MEDS: FEXOFENADINE 180 MG TABLET PO SCH (09:43)
[2021-07-11] MEDS: DULoxetine 30 MG CAPSULE PO SCH (09:43)
[2021-07-11] MEDS: LEVOTHYROXINE 125 MCG TABLET PO SCH (09:43)
[2021-07-11] MEDS: RIFAXIMIN 550 MG TABLET PO SCH ×2 (09:43→20:36)
[2021-07-11] MEDS: SPIRONOLACTONE 25 MG TABLET PO SCH (09:43)
[2021-07-11] MEDS: MULTIVITAMIN (CENTRUM) TABLET PO SCH (09:43)
[2021-07-11] MEDS: MONTELUKAST 10 MG TABLET PO SCH (09:43)
[2021-07-11] MEDS: FUROSEMIDE 40 MG/4 ML VIAL IV SCH ×2 (09:44→16:50)
[2021-07-11] MEDS: DILTIAZEM CD 120 MG CAPSULE PO SCH (09:44)
[2021-07-11] MEDS: PANTOPRAZOLE 40 MG TABLET PO SCH (09:46)
[2021-07-11] MEDS: METOPROLOL TARTRATE 50 MG TABLET PO SCH ×2 (09:46→20:36)
[2021-07-11] MEDS: DESITIN 4OZ/NYSTATIN 15 GRAM MIXTURE PASTE TOP SCH ×2 (09:46→20:38)
[2021-07-11] MEDS: INSULIN REGULAR 100 UNIT/ML SUBCUT SCH ×4 (09:47→20:37)
[2021-07-11] MEDS: POLYETHYLENE GLYCOL POWDER 17 GM PACK PO SCH (10:18)
[2021-07-11] MEDS ORDERED: BISACODYL 10 MG SUPP RECTAL ONE (11:36)
[2021-07-11] MEDS: LEVOFLOXACIN INJ 500 MG/100 ML PREMIX IV SCH (20:37)
[2021-07-12] MEDS: ALBUTEROL 2.5 MG/3 ML NEB RESP TX SCH ×4 (01:15→19:53)
[2021-07-12 04:29] LABS: Basophils % 0.1 % (0.0-0.8); Eosinophils # 0.7 10*3/uL (0.0-0.87); Hematocrit 36.3 VOL% (35.7-47.0); Hemoglobin 11.4 GM/DL (12.0-16.0); Immature Granulocytes % 0.5 %; Immature Granulocytes Absolute 0.04 #; Lymphocytes # 1.2 10*3/uL (1.4-4.0); Mean Corpuscular HGB Conc 31.4 GM/DL (32-36); Mean Corpuscular Volume 97.8 FL (87-102); Mean Platelet Volume 11.9 FL (9.6-12.0); Monocytes % 8.6 % (1.7-12.7); Neutrophils % 66.8 % (38.7-73.9); Platelet Count 182 T/CUMM (130-400); Red Blood Count 3.71 MC/CUMM (3.8-5.5); White Blood Count 7.9 T/CUMM (4-12)
[2021-07-12 05:00] LABS: Albumin 1.9 G/DL (3.4-5.0); Bilirubin,Total 1.6 MG/DL (0.20-1.00); Calcium 8.1 MG/DL (8.5-10.1); Potassium 3.5 MMOL/L (3.5-5.1); Total Protein 5.9 G/DL (6.4-8.2)
[2021-07-12 05:05] LABS: Osmolality,Calculated 271.4 MOS/KG (273-304)
[2021-07-12] MEDS: LEVOTHYROXINE 125 MCG TABLET PO SCH (06:27)
[2021-07-12] MEDS: POLYETHYLENE GLYCOL POWDER 17 GM PACK PO SCH (08:30)
[2021-07-12] MEDS: LACTULOSE 20 GM/30 ML UDCUP PO SCH ×2 (08:31→20:36)
[2021-07-12] MEDS: FUROSEMIDE 40 MG/4 ML VIAL IV SCH ×2 (08:31→15:43)
[2021-07-12] MEDS: DULoxetine 30 MG CAPSULE PO SCH (08:31)
[2021-07-12] MEDS: RIFAXIMIN 550 MG TABLET PO SCH ×2 (08:31→20:36)
[2021-07-12] MEDS: SPIRONOLACTONE 25 MG TABLET PO SCH (08:32)
[2021-07-12] MEDS: PANTOPRAZOLE 40 MG TABLET PO SCH (08:32)
[2021-07-12] MEDS: MONTELUKAST 10 MG TABLET PO SCH (08:32)
[2021-07-12] MEDS: DILTIAZEM CD 120 MG CAPSULE PO SCH (08:32)
[2021-07-12] MEDS: FEXOFENADINE 180 MG TABLET PO SCH (08:32)
[2021-07-12] MEDS: MULTIVITAMIN (CENTRUM) TABLET PO SCH (08:32)
[2021-07-12] MEDS: METOPROLOL TARTRATE 50 MG TABLET PO SCH ×2 (08:32→20:55)
[2021-07-12] MEDS: INSULIN REGULAR 100 UNIT/ML SUBCUT SCH ×4 (08:33→20:37)
[2021-07-12] MEDS: DESITIN 4OZ/NYSTATIN 15 GRAM MIXTURE PASTE TOP SCH ×2 (08:33→20:56)
[2021-07-12] MEDS: LEVOFLOXACIN INJ 500 MG/100 ML PREMIX IV SCH (20:37)
[2021-07-13] MEDS: ALBUTEROL 2.5 MG/3 ML NEB RESP TX SCH ×4 (00:35→19:42)
[2021-07-13] MEDS: LEVOTHYROXINE 125 MCG TABLET PO SCH (05:47)
[2021-07-13 08:47] LABS: Basophils % 0.4 % (0.0-0.8); Eosinophils # 0.3 10*3/uL (0.0-0.87); Eosinophils % 5.4 % (0.00-10.9); Hematocrit 36.6 VOL% (35.7-47.0); Hemoglobin 11.7 GM/DL (12.0-16.0); Immature Granulocytes % 0.4 %; Immature Granulocytes Absolute 0.02 #; Lymphocytes # 1.4 10*3/uL (1.4-4.0); Mean Corpuscular Volume 95.8 FL (87-102); Mean Platelet Volume 11.3 FL (9.6-12.0); Monocytes % 9.9 % (1.7-12.7); Neutrophils % 56.9 % (38.7-73.9); Platelet Count 181 T/CUMM (130-400); Red Blood Count 3.82 MC/CUMM (3.8-5.5); Red Cell Distribution Width 13.8 % (9.3-17.3)
[2021-07-13 09:28] LABS: Bilirubin,Total 1.5 MG/DL (0.20-1.00); Calcium 8.2 MG/DL (8.5-10.1); Potassium 3.7 MMOL/L (3.5-5.1); Total Protein 6.4 G/DL (6.4-8.2)
[2021-07-13 09:34] LABS: Osmolality,Calculated 268.7 MOS/KG (273-304)
[2021-07-13] MEDS: INSULIN REGULAR 100 UNIT/ML SUBCUT SCH ×4 (09:43→22:05)
[2021-07-13] MEDS: FUROSEMIDE 40 MG/4 ML VIAL IV SCH ×2 (09:44→16:28)
[2021-07-13] MEDS: DULoxetine 30 MG CAPSULE PO SCH (09:46)
[2021-07-13] MEDS: LACTULOSE 20 GM/30 ML UDCUP PO SCH ×2 (09:46→22:05)
[2021-07-13] MEDS: POLYETHYLENE GLYCOL POWDER 17 GM PACK PO SCH (09:46)
[2021-07-13] MEDS: PANTOPRAZOLE 40 MG TABLET PO SCH (09:47)
[2021-07-13] MEDS: FEXOFENADINE 180 MG TABLET PO SCH (09:47)
[2021-07-13] MEDS: MULTIVITAMIN (CENTRUM) TABLET PO SCH (09:47)
[2021-07-13] MEDS: MONTELUKAST 10 MG TABLET PO SCH (09:47)
[2021-07-13] MEDS: RIFAXIMIN 550 MG TABLET PO SCH ×2 (09:47→22:05)
[2021-07-13] MEDS: METOPROLOL TARTRATE 50 MG TABLET PO SCH ×2 (09:47→22:06)
[2021-07-13] MEDS: SPIRONOLACTONE 25 MG TABLET PO SCH (09:47)
[2021-07-13] MEDS: DILTIAZEM CD 120 MG CAPSULE PO SCH (09:47)
[2021-07-13] MEDS: DESITIN 4OZ/NYSTATIN 15 GRAM MIXTURE PASTE TOP SCH ×2 (09:48→22:06)
[2021-07-13] MEDS: VANCOMYCIN INJ 2,000 MG in SODIUM CHLORIDE 0.9% 500 ML IV SCH (09:52)
[2021-07-13] MEDS: LEVOFLOXACIN INJ 500 MG/100 ML PREMIX IV SCH (22:05)
[2021-07-14] MEDS: ALBUTEROL 2.5 MG/3 ML NEB RESP TX SCH ×4 (01:22→19:17)
[2021-07-14] MEDS: LEVOTHYROXINE 125 MCG TABLET PO SCH (05:41)
[2021-07-14 07:06] LABS: Basophils % 0.5 % (0.0-0.8); Eosinophils # 0.2 10*3/uL (0.0-0.87); Eosinophils % 3.2 % (0.00-10.9); Immature Granulocytes % 0.3 %; Immature Granulocytes Absolute 0.02 #; Lymphocytes # 1.4 10*3/uL (1.4-4.0); Lymphocytes % 23.6 % (21.3-54.2); Mean Corpuscular HGB Conc 31.6 GM/DL (32-36); Mean Corpuscular Volume 96.7 FL (87-102); Mean Platelet Volume 11.3 FL (9.6-12.0); Monocytes % 12.9 % (1.7-12.7); Neutrophils % 59.5 % (38.7-73.9); Platelet Count 175 T/CUMM (130-400); Red Blood Count 3.93 MC/CUMM (3.8-5.5); Red Cell Distribution Width 13.6 % (9.3-17.3); White Blood Count 5.9 T/CUMM (4-12)
[2021-07-14 07:36] LABS: Bilirubin,Total 1.2 MG/DL (0.20-1.00); Calcium 8.6 MG/DL (8.5-10.1); Osmolality,Calculated 274.2 MOS/KG (273-304); Potassium 3.9 MMOL/L (3.5-5.1); Total Protein 6.6 G/DL (6.4-8.2)
[2021-07-14] MEDS: INSULIN REGULAR 100 UNIT/ML SUBCUT SCH ×4 (08:06→21:49)
[2021-07-14] MEDS: LACTULOSE 20 GM/30 ML UDCUP PO SCH ×2 (08:58→21:49)
[2021-07-14] MEDS: POLYETHYLENE GLYCOL POWDER 17 GM PACK PO SCH (08:58)
[2021-07-14] MEDS: SPIRONOLACTONE 25 MG TABLET PO SCH (08:59)
[2021-07-14] MEDS: MULTIVITAMIN (CENTRUM) TABLET PO SCH (08:59)
[2021-07-14] MEDS: DULoxetine 30 MG CAPSULE PO SCH (08:59)
[2021-07-14] MEDS: DILTIAZEM CD 120 MG CAPSULE PO SCH (08:59)
[2021-07-14] MEDS: RIFAXIMIN 550 MG TABLET PO SCH ×2 (08:59→21:49)
[2021-07-14] MEDS: MONTELUKAST 10 MG TABLET PO SCH (08:59)
[2021-07-14] MEDS: PANTOPRAZOLE 40 MG TABLET PO SCH (08:59)
[2021-07-14] MEDS: FEXOFENADINE 180 MG TABLET PO SCH (08:59)
[2021-07-14] MEDS: FUROSEMIDE 40 MG/4 ML VIAL IV SCH ×2 (09:00→16:35)
[2021-07-14] MEDS: DESITIN 4OZ/NYSTATIN 15 GRAM MIXTURE PASTE TOP SCH ×2 (09:01→21:50)
[2021-07-14] MEDS: METOPROLOL TARTRATE 50 MG TABLET PO SCH ×2 (09:06→21:50)
[2021-07-14] MEDS: VANCOMYCIN INJ 2,000 MG in SODIUM CHLORIDE 0.9% 500 ML IV SCH (12:18)
[2021-07-14] MEDS: LEVOFLOXACIN INJ 500 MG/100 ML PREMIX IV SCH (21:49)
[2021-07-15] MEDS: ALBUTEROL 2.5 MG/3 ML NEB RESP TX SCH ×4 (01:36→22:00)
[2021-07-15] MEDS: LEVOTHYROXINE 125 MCG TABLET PO SCH ×2 (05:14→05:50)
[2021-07-15 05:48] LABS: Basophils % 0.6 % (0.0-0.8); Eosinophils # 0.2 10*3/uL (0.0-0.87); Eosinophils % 3.1 % (0.00-10.9); Hematocrit 38.2 VOL% (35.7-47.0); Hemoglobin 12.5 GM/DL (12.0-16.0); Immature Granulocytes % 0.9 %; Immature Granulocytes Absolute 0.06 #; Lymphocytes # 1.5 10*3/uL (1.4-4.0); Lymphocytes % 22.4 % (21.3-54.2); Mean Corpuscular HGB Conc 32.7 GM/DL (32-36); Mean Corpuscular Volume 96.2 FL (87-102); Mean Platelet Volume 12.9 FL (9.6-12.0); Monocytes % 13.2 % (1.7-12.7); Neutrophils % 59.8 % (38.7-73.9); Platelet Count 129 T/CUMM (130-400); Red Blood Count 3.97 MC/CUMM (3.8-5.5); Red Cell Distribution Width 13.5 % (9.3-17.3); White Blood Count 6.5 T/CUMM (4-12)
[2021-07-15 06:14] LABS: Albumin 1.8 G/DL (3.4-5.0); Bilirubin,Total 0.9 MG/DL (0.20-1.00); Calcium 8.2 MG/DL (8.5-10.1); Osmolality,Calculated 269.5 MOS/KG (273-304); Potassium 4.4 MMOL/L (3.5-5.1); Total Protein 6.5 G/DL (6.4-8.2)
[2021-07-15] MEDS: INSULIN REGULAR 100 UNIT/ML SUBCUT SCH ×4 (09:41→21:23)
[2021-07-15] MEDS: FUROSEMIDE 40 MG/4 ML VIAL IV SCH ×2 (09:42→16:28)
[2021-07-15] MEDS: MULTIVITAMIN (CENTRUM) TABLET PO SCH (09:46)
[2021-07-15] MEDS: MONTELUKAST 10 MG TABLET PO SCH (09:46)
[2021-07-15] MEDS: FEXOFENADINE 180 MG TABLET PO SCH (09:46)
[2021-07-15] MEDS: POLYETHYLENE GLYCOL POWDER 17 GM PACK PO SCH (09:46)
[2021-07-15] MEDS: DULoxetine 30 MG CAPSULE PO SCH (09:46)
[2021-07-15] MEDS: DILTIAZEM CD 120 MG CAPSULE PO SCH (09:47)
[2021-07-15] MEDS: LACTULOSE 20 GM/30 ML UDCUP PO SCH ×2 (09:47→21:23)
[2021-07-15] MEDS: SPIRONOLACTONE 25 MG TABLET PO SCH (09:48)
[2021-07-15] MEDS: PANTOPRAZOLE 40 MG TABLET PO SCH (09:48)
[2021-07-15] MEDS: METOPROLOL TARTRATE 50 MG TABLET PO SCH ×2 (09:48→21:23)
[2021-07-15] MEDS: DESITIN 4OZ/NYSTATIN 15 GRAM MIXTURE PASTE TOP SCH ×2 (09:51→21:43)
[2021-07-15] MEDS: VANCOMYCIN INJ 2,000 MG in SODIUM CHLORIDE 0.9% 500 ML IV SCH (11:05)
[2021-07-16] MEDS: ALBUTEROL 2.5 MG/3 ML NEB RESP TX SCH ×4 (00:50→20:20)
[2021-07-16 03:52] LABS: Basophils # 0.1 10*3/uL (0.0-0.2); Basophils % 0.6 % (0.0-0.8); Eosinophils # 0.2 10*3/uL (0.0-0.87); Eosinophils % 2.8 % (0.00-10.9); Hematocrit 39.4 VOL% (35.7-47.0); Hemoglobin 12.8 GM/DL (12.0-16.0); Immature Granulocytes % 0.4 %; Immature Granulocytes Absolute 0.03 #; Lymphocytes # 1.8 10*3/uL (1.4-4.0); Lymphocytes % 22.8 % (21.3-54.2); Mean Corpuscular HGB Conc 32.5 GM/DL (32-36); Mean Corpuscular Volume 96.1 FL (87-102); Mean Platelet Volume 11.3 FL (9.6-12.0); Monocytes % 10.4 % (1.7-12.7); Platelet Count 208 T/CUMM (130-400); Red Cell Distribution Width 13.7 % (9.3-17.3); White Blood Count 7.9 T/CUMM (4-12)
[2021-07-16 04:22] LABS: Free T4 (Free Thyroxine) 1.35 NG/DL (0.76-1.46)
[2021-07-16 04:24] LABS: Albumin 2.1 G/DL (3.4-5.0); Calcium 8.3 MG/DL (8.5-10.1); Osmolality,Calculated 269.5 MOS/KG (273-304); Potassium 3.7 MMOL/L (3.5-5.1); Total Protein 6.9 G/DL (6.4-8.2)
[2021-07-16] MEDS: LEVOTHYROXINE 125 MCG TABLET PO SCH (06:25)
[2021-07-16] MEDS: INSULIN REGULAR 100 UNIT/ML SUBCUT SCH ×4 (08:54→21:42)
[2021-07-16] MEDS: FUROSEMIDE 40 MG/4 ML VIAL IV SCH ×2 (08:55→17:03)
[2021-07-16] MEDS: POLYETHYLENE GLYCOL POWDER 17 GM PACK PO SCH (09:00)
[2021-07-16] MEDS: LACTULOSE 20 GM/30 ML UDCUP PO SCH ×2 (09:01→21:43)
[2021-07-16] MEDS: DOCUSATE SODIUM 100 MG CAPSULE PO PRN (09:01)
[2021-07-16] MEDS: MONTELUKAST 10 MG TABLET PO SCH (09:01)
[2021-07-16] MEDS: DULoxetine 30 MG CAPSULE PO SCH (09:01)
[2021-07-16] MEDS: DILTIAZEM CD 120 MG CAPSULE PO SCH (09:01)
[2021-07-16] MEDS: PANTOPRAZOLE 40 MG TABLET PO SCH (09:02)
[2021-07-16] MEDS: FEXOFENADINE 180 MG TABLET PO SCH (09:02)
[2021-07-16] MEDS: MULTIVITAMIN (CENTRUM) TABLET PO SCH (09:02)
[2021-07-16] MEDS: SPIRONOLACTONE 25 MG TABLET PO SCH (09:02)
[2021-07-16] MEDS: METOPROLOL TARTRATE 50 MG TABLET PO SCH ×2 (09:02→21:43)
[2021-07-16] MEDS: DESITIN 4OZ/NYSTATIN 15 GRAM MIXTURE PASTE TOP SCH ×2 (09:03→21:44)
[2021-07-16] MEDS: VANCOMYCIN INJ 2,000 MG in SODIUM CHLORIDE 0.9% 500 ML IV SCH (10:55)
[2021-07-16] MEDS: DOCUSATE SODIUM 100 MG CAPSULE PO SCH (21:43)
[2021-07-17] MEDS: ALBUTEROL 2.5 MG/3 ML NEB RESP TX SCH ×4 (00:45→19:30)
[2021-07-17] MEDS: LEVOTHYROXINE 125 MCG TABLET PO SCH ×2 (05:06→06:23)
[2021-07-17 06:22] LABS: Basophils # 0.1 10*3/uL (0.0-0.2); Basophils % 0.5 % (0.0-0.8); Eosinophils # 0.3 10*3/uL (0.0-0.87); Eosinophils % 2.7 % (0.00-10.9); Hematocrit 37.2 VOL% (35.7-47.0); Hemoglobin 12.1 GM/DL (12.0-16.0); Immature Granulocytes % 0.6 %; Immature Granulocytes Absolute 0.06 #; Lymphocytes # 1.5 10*3/uL (1.4-4.0); Lymphocytes % 14.3 % (21.3-54.2); Mean Corpuscular HGB Conc 32.5 GM/DL (32-36); Mean Corpuscular Volume 96.1 FL (87-102); Mean Platelet Volume 11.6 FL (9.6-12.0); Monocytes % 8.6 % (1.7-12.7); Neutrophils % 73.3 % (38.7-73.9); Platelet Count 219 T/CUMM (130-400); Red Blood Count 3.87 MC/CUMM (3.8-5.5); Red Cell Distribution Width 13.5 % (9.3-17.3); White Blood Count 10.8 T/CUMM (4-12)
[2021-07-17 06:41] LABS: Bilirubin,Total 0.9 MG/DL (0.20-1.00); Calcium 8.2 MG/DL (8.5-10.1); Potassium 3.6 MMOL/L (3.5-5.1); Total Protein 6.6 G/DL (6.4-8.2)
[2021-07-17] MEDS ORDERED: TISSUE ADHESIVE 1 EACH APPLICATOR TOP ONE (08:56)
[2021-07-17 09:39] LABS: Neutrophils,Peritoneal Fluid 2 %
[2021-07-17 09:43] LABS: RBC,Peritoneal Fluid 482 T/CUMM
[2021-07-17] MEDS: INSULIN REGULAR 100 UNIT/ML SUBCUT SCH ×4 (09:55→21:19)
[2021-07-17] MEDS: FUROSEMIDE 40 MG/4 ML VIAL IV SCH ×2 (09:56→16:46)
[2021-07-17] MEDS: LACTULOSE 20 GM/30 ML UDCUP PO SCH ×2 (09:58→21:19)
[2021-07-17] MEDS: POLYETHYLENE GLYCOL POWDER 17 GM PACK PO SCH (09:58)
[2021-07-17] MEDS: DOCUSATE SODIUM 100 MG CAPSULE PO SCH ×2 (09:59→21:19)
[2021-07-17] MEDS: FEXOFENADINE 180 MG TABLET PO SCH (09:59)
[2021-07-17] MEDS: METOPROLOL TARTRATE 50 MG TABLET PO SCH ×2 (09:59→21:19)
[2021-07-17] MEDS: MULTIVITAMIN (CENTRUM) TABLET PO SCH (09:59)
[2021-07-17] MEDS: DULoxetine 30 MG CAPSULE PO SCH (09:59)
[2021-07-17] MEDS: DILTIAZEM CD 120 MG CAPSULE PO SCH (09:59)
[2021-07-17] MEDS: SPIRONOLACTONE 25 MG TABLET PO SCH (09:59)
[2021-07-17] MEDS: MONTELUKAST 10 MG TABLET PO SCH (09:59)
[2021-07-17] MEDS: PANTOPRAZOLE 40 MG TABLET PO SCH (09:59)
[2021-07-17] MEDS: DESITIN 4OZ/NYSTATIN 15 GRAM MIXTURE PASTE TOP SCH ×2 (10:00→21:20)
[2021-07-17] MEDS: VANCOMYCIN INJ 2,000 MG in SODIUM CHLORIDE 0.9% 500 ML IV SCH (10:04)
[2021-07-17] MEDS ORDERED: TUBERCULIN SKIN TEST 0.1 ML SYRINGE INTRADERM ONE (20:11)
[2021-07-18] MEDS: ALBUTEROL 2.5 MG/3 ML NEB RESP TX SCH ×4 (01:41→19:21)
[2021-07-18 05:43] LABS: Basophils % 0.5 % (0.0-0.8); Eosinophils # 0.3 10*3/uL (0.0-0.87); Eosinophils % 3.4 % (0.00-10.9); Hematocrit 37.9 VOL% (35.7-47.0); Hemoglobin 12.3 GM/DL (12.0-16.0); Immature Granulocytes % 0.8 %; Immature Granulocytes Absolute 0.06 #; Lymphocytes # 1.8 10*3/uL (1.4-4.0); Lymphocytes % 23.1 % (21.3-54.2); Mean Corpuscular HGB Conc 32.5 GM/DL (32-36); Mean Corpuscular Volume 95.7 FL (87-102); Mean Platelet Volume 11.8 FL (9.6-12.0); Monocytes % 11.9 % (1.7-12.7); Neutrophils % 60.3 % (38.7-73.9); Platelet Count 219 T/CUMM (130-400); Red Blood Count 3.96 MC/CUMM (3.8-5.5); Red Cell Distribution Width 13.3 % (9.3-17.3); White Blood Count 7.7 T/CUMM (4-12)
[2021-07-18 06:07] LABS: Albumin 1.9 G/DL (3.4-5.0); Calcium 8.1 MG/DL (8.5-10.1); Osmolality,Calculated 277.8 MOS/KG (273-304); Potassium 3.7 MMOL/L (3.5-5.1); Total Protein 6.6 G/DL (6.4-8.2)
[2021-07-18] MEDS: LEVOTHYROXINE 125 MCG TABLET PO SCH (06:13)
[2021-07-18] MEDS: INSULIN GLARGINE 100 UNIT/ML SUBCUT SCH (10:03)
[2021-07-18] MEDS: INSULIN REGULAR 100 UNIT/ML SUBCUT SCH ×4 (10:04→21:18)
[2021-07-18] MEDS: FUROSEMIDE 40 MG/4 ML VIAL IV SCH ×2 (10:05→17:03)
[2021-07-18] MEDS: DESITIN 4OZ/NYSTATIN 15 GRAM MIXTURE PASTE TOP SCH ×2 (10:09→21:21)
[2021-07-18] MEDS: LACTULOSE 20 GM/30 ML UDCUP PO SCH ×2 (10:10→21:18)
[2021-07-18] MEDS: DULoxetine 30 MG CAPSULE PO SCH (10:10)
[2021-07-18] MEDS: MONTELUKAST 10 MG TABLET PO SCH (10:10)
[2021-07-18] MEDS: POLYETHYLENE GLYCOL POWDER 17 GM PACK PO SCH (10:10)
[2021-07-18] MEDS: MULTIVITAMIN (CENTRUM) TABLET PO SCH (10:10)
[2021-07-18] MEDS: SPIRONOLACTONE 25 MG TABLET PO SCH (10:11)
[2021-07-18] MEDS: DOCUSATE SODIUM 100 MG CAPSULE PO SCH ×2 (10:11→21:17)
[2021-07-18] MEDS: DILTIAZEM CD 120 MG CAPSULE PO SCH (10:11)
[2021-07-18] MEDS: FEXOFENADINE 180 MG TABLET PO SCH (10:11)
[2021-07-18] MEDS: METOPROLOL TARTRATE 50 MG TABLET PO SCH ×2 (10:11→21:18)
[2021-07-18] MEDS: PANTOPRAZOLE 40 MG TABLET PO SCH (10:11)
[2021-07-19] MEDS: ALBUTEROL 2.5 MG/3 ML NEB RESP TX SCH ×4 (01:17→19:56)
[2021-07-19] MEDS: LEVOTHYROXINE 125 MCG TABLET PO SCH (08:05)
[2021-07-19] MEDS: INSULIN REGULAR 100 UNIT/ML SUBCUT SCH ×4 (08:06→20:51)
[2021-07-19 08:22] LABS: Basophils % 0.5 % (0.0-0.8); Eosinophils # 0.2 10*3/uL (0.0-0.87); Eosinophils % 2.4 % (0.00-10.9); Hematocrit 37.5 VOL% (35.7-47.0); Hemoglobin 12.4 GM/DL (12.0-16.0); Immature Granulocytes % 0.4 %; Immature Granulocytes Absolute 0.03 #; Lymphocytes # 2.2 10*3/uL (1.4-4.0); Lymphocytes % 28.1 % (21.3-54.2); Mean Corpuscular HGB Conc 33.1 GM/DL (32-36); Mean Corpuscular Volume 94.7 FL (87-102); Mean Platelet Volume 11.6 FL (9.6-12.0); Monocytes % 10.8 % (1.7-12.7); Neutrophils % 57.8 % (38.7-73.9); Platelet Count 230 T/CUMM (130-400); Red Blood Count 3.96 MC/CUMM (3.8-5.5); Red Cell Distribution Width 13.3 % (9.3-17.3); White Blood Count 7.9 T/CUMM (4-12)
[2021-07-19 08:41] LABS: Bilirubin,Total 1.7 MG/DL (0.20-1.00); Calcium 8.3 MG/DL (8.5-10.1); Potassium 4.1 MMOL/L (3.5-5.1); Total Protein 6.8 G/DL (6.4-8.2)
[2021-07-19] MEDS: DULoxetine 30 MG CAPSULE PO SCH (09:41)
[2021-07-19] MEDS: FEXOFENADINE 180 MG TABLET PO SCH (09:41)
[2021-07-19] MEDS: MONTELUKAST 10 MG TABLET PO SCH (09:41)
[2021-07-19] MEDS: METOPROLOL TARTRATE 50 MG TABLET PO SCH ×2 (09:41→20:51)
[2021-07-19] MEDS: SPIRONOLACTONE 25 MG TABLET PO SCH (09:41)
[2021-07-19] MEDS: POLYETHYLENE GLYCOL POWDER 17 GM PACK PO SCH (09:42)
[2021-07-19] MEDS: PANTOPRAZOLE 40 MG TABLET PO SCH (09:42)
[2021-07-19] MEDS: DOCUSATE SODIUM 100 MG CAPSULE PO SCH ×2 (09:42→20:51)
[2021-07-19] MEDS: DILTIAZEM CD 120 MG CAPSULE PO SCH (09:42)
[2021-07-19] MEDS: MULTIVITAMIN (CENTRUM) TABLET PO SCH (09:43)
[2021-07-19] MEDS: INSULIN GLARGINE 100 UNIT/ML SUBCUT SCH (09:43)
[2021-07-19] MEDS: LACTULOSE 20 GM/30 ML UDCUP PO SCH ×3 (09:43→20:51)
[2021-07-19] MEDS: DESITIN 4OZ/NYSTATIN 15 GRAM MIXTURE PASTE TOP SCH ×2 (09:46→20:52)
[2021-07-19] MEDS: FUROSEMIDE 40 MG/4 ML VIAL IV SCH ×2 (09:46→16:41)
[2021-07-20] MEDS: LEVOTHYROXINE 125 MCG TABLET PO SCH (06:31)
[2021-07-20 06:41] LABS: Basophils # 0.1 10*3/uL (0.0-0.2); Basophils % 0.7 % (0.0-0.8); Eosinophils # 0.2 10*3/uL (0.0-0.87); Eosinophils % 2.8 % (0.00-10.9); Hematocrit 37.6 VOL% (35.7-47.0); Hemoglobin 12.3 GM/DL (12.0-16.0); Immature Granulocytes % 0.3 %; Immature Granulocytes Absolute 0.02 #; Lymphocytes # 1.9 10*3/uL (1.4-4.0); Lymphocytes % 26.8 % (21.3-54.2); Mean Corpuscular HGB Conc 32.7 GM/DL (32-36); Mean Corpuscular Volume 96.2 FL (87-102); Mean Platelet Volume 11.3 FL (9.6-12.0); Monocytes % 10.7 % (1.7-12.7); Neutrophils % 58.7 % (38.7-73.9); Platelet Count 207 T/CUMM (130-400); Red Blood Count 3.91 MC/CUMM (3.8-5.5); Red Cell Distribution Width 13.3 % (9.3-17.3); White Blood Count 6.9 T/CUMM (4-12)
[2021-07-20] MEDS: ALBUTEROL 2.5 MG/3 ML NEB RESP TX SCH ×3 (07:00→19:59)
[2021-07-20 07:04] LABS: Albumin 1.9 G/DL (3.4-5.0); Bilirubin,Total 0.9 MG/DL (0.20-1.00); Calcium 8.4 MG/DL (8.5-10.1); Osmolality,Calculated 273.2 MOS/KG (273-304); Potassium 4.5 MMOL/L (3.5-5.1); Total Protein 6.7 G/DL (6.4-8.2)
[2021-07-20] MEDS: INSULIN REGULAR 100 UNIT/ML SUBCUT SCH ×4 (09:17→20:31)
[2021-07-20] MEDS: INSULIN GLARGINE 100 UNIT/ML SUBCUT SCH (09:18)
[2021-07-20] MEDS: FUROSEMIDE 40 MG/4 ML VIAL IV SCH ×2 (09:19→17:40)
[2021-07-20] MEDS: POLYETHYLENE GLYCOL POWDER 17 GM PACK PO SCH (09:22)
[2021-07-20] MEDS: DOCUSATE SODIUM 100 MG CAPSULE PO SCH ×2 (09:23→20:30)
[2021-07-20] MEDS: FEXOFENADINE 180 MG TABLET PO SCH (09:23)
[2021-07-20] MEDS: SPIRONOLACTONE 25 MG TABLET PO SCH (09:23)
[2021-07-20] MEDS: MONTELUKAST 10 MG TABLET PO SCH (09:23)
[2021-07-20] MEDS: DULoxetine 30 MG CAPSULE PO SCH (09:23)
[2021-07-20] MEDS: DILTIAZEM CD 120 MG CAPSULE PO SCH (09:24)
[2021-07-20] MEDS: METOPROLOL TARTRATE 50 MG TABLET PO SCH ×2 (09:25→20:30)
[2021-07-20] MEDS: PANTOPRAZOLE 40 MG TABLET PO SCH (09:25)
[2021-07-20] MEDS: MULTIVITAMIN (CENTRUM) TABLET PO SCH (09:25)
[2021-07-20] MEDS: LACTULOSE 20 GM/30 ML UDCUP PO SCH ×4 (09:26→20:31)
[2021-07-20] MEDS: DESITIN 4OZ/NYSTATIN 15 GRAM MIXTURE PASTE TOP SCH ×2 (09:26→20:31)
[2021-07-21] MEDS: ALBUTEROL 2.5 MG/3 ML NEB RESP TX SCH ×4 (01:37→19:57)
[2021-07-21 05:36] LABS: Basophils % 0.6 % (0.0-0.8); Eosinophils # 0.1 10*3/uL (0.0-0.87); Eosinophils % 1.4 % (0.00-10.9); Hematocrit 38.1 VOL% (35.7-47.0); Hemoglobin 12.2 GM/DL (12.0-16.0); Immature Granulocytes % 0.3 %; Immature Granulocytes Absolute 0.02 #; Lymphocytes # 1.8 10*3/uL (1.4-4.0); Lymphocytes % 24.6 % (21.3-54.2); Mean Corpuscular Volume 97.7 FL (87-102); Mean Platelet Volume 11.5 FL (9.6-12.0); Monocytes % 9.3 % (1.7-12.7); Neutrophils % 63.8 % (38.7-73.9); Platelet Count 207 T/CUMM (130-400); Red Cell Distribution Width 13.2 % (9.3-17.3); White Blood Count 7.2 T/CUMM (4-12)
[2021-07-21 06:02] LABS: Bilirubin,Total 0.6 MG/DL (0.20-1.00); Calcium 8.7 MG/DL (8.5-10.1); Osmolality,Calculated 276.2 MOS/KG (273-304); Potassium 4.8 MMOL/L (3.5-5.1); Total Protein 6.9 G/DL (6.4-8.2)
[2021-07-21] MEDS: LEVOTHYROXINE 125 MCG TABLET PO SCH (06:18)
[2021-07-21] MEDS: INSULIN REGULAR 100 UNIT/ML SUBCUT SCH ×4 (08:55→20:38)
[2021-07-21] MEDS: FEXOFENADINE 180 MG TABLET PO SCH (09:47)
[2021-07-21] MEDS: FUROSEMIDE 40 MG/4 ML VIAL IV SCH ×2 (09:47→16:00)
[2021-07-21] MEDS: MULTIVITAMIN (CENTRUM) TABLET PO SCH (09:47)
[2021-07-21] MEDS: DILTIAZEM CD 120 MG CAPSULE PO SCH (09:48)
[2021-07-21] MEDS: DOCUSATE SODIUM 100 MG CAPSULE PO SCH ×2 (09:48→20:37)
[2021-07-21] MEDS: DULoxetine 30 MG CAPSULE PO SCH (09:48)
[2021-07-21] MEDS: MONTELUKAST 10 MG TABLET PO SCH (09:48)
[2021-07-21] MEDS: SPIRONOLACTONE 25 MG TABLET PO SCH ×2 (09:48→20:38)
[2021-07-21] MEDS: PANTOPRAZOLE 40 MG TABLET PO SCH (09:48)
[2021-07-21] MEDS: METOPROLOL TARTRATE 50 MG TABLET PO SCH ×2 (09:49→20:37)
[2021-07-21] MEDS: POLYETHYLENE GLYCOL POWDER 17 GM PACK PO SCH (09:49)
[2021-07-21] MEDS: AMOXICILLIN/CLAV 875 MG TABLET PO SCH ×2 (09:49→20:38)
[2021-07-21] MEDS: LACTULOSE 20 GM/30 ML UDCUP PO SCH ×4 (09:49→20:37)
[2021-07-21] MEDS: INSULIN GLARGINE 100 UNIT/ML SUBCUT SCH (10:37)
[2021-07-21] MEDS: DESITIN 4OZ/NYSTATIN 15 GRAM MIXTURE PASTE TOP SCH ×2 (12:18→20:38)
[2021-07-22] MEDS: ALBUTEROL 2.5 MG/3 ML NEB RESP TX SCH ×2 (00:30→07:12)
[2021-07-22 07:06] LABS: Basophils % 0.5 % (0.0-0.8); Eosinophils # 0.2 10*3/uL (0.0-0.87); Eosinophils % 1.7 % (0.00-10.9); Hematocrit 37.3 VOL% (35.7-47.0); Hemoglobin 11.9 GM/DL (12.0-16.0); Immature Granulocytes % 0.3 %; Immature Granulocytes Absolute 0.03 #; Lymphocytes % 22.7 % (21.3-54.2); Mean Corpuscular HGB Conc 31.9 GM/DL (32-36); Mean Corpuscular Volume 95.9 FL (87-102); Monocytes % 9.1 % (1.7-12.7); Neutrophils % 65.7 % (38.7-73.9); Platelet Count 235 T/CUMM (130-400); Red Blood Count 3.89 MC/CUMM (3.8-5.5); Red Cell Distribution Width 13.2 % (9.3-17.3); White Blood Count 8.6 T/CUMM (4-12)
[2021-07-22] MEDS: LEVOTHYROXINE 125 MCG TABLET PO SCH (07:16)
[2021-07-22 07:26] LABS: Bilirubin,Total 2.2 MG/DL (0.20-1.00); Calcium 8.8 MG/DL (8.5-10.1); Osmolality,Calculated 272.2 MOS/KG (273-304); Total Protein 6.8 G/DL (6.4-8.2)
[2021-07-22] MEDS: AMOXICILLIN/CLAV 875 MG TABLET PO SCH (09:38)
[2021-07-22] MEDS: MULTIVITAMIN (CENTRUM) TABLET PO SCH (09:40)
[2021-07-22] MEDS: PANTOPRAZOLE 40 MG TABLET PO SCH (09:40)
[2021-07-22] MEDS: DILTIAZEM CD 120 MG CAPSULE PO SCH (09:41)
[2021-07-22] MEDS: DULoxetine 30 MG CAPSULE PO SCH (09:41)
[2021-07-22] MEDS: METOPROLOL TARTRATE 50 MG TABLET PO SCH (09:42)
[2021-07-22] MEDS: SPIRONOLACTONE 25 MG TABLET PO SCH (09:42)
[2021-07-22] MEDS: FEXOFENADINE 180 MG TABLET PO SCH (09:43)
[2021-07-22] MEDS: MONTELUKAST 10 MG TABLET PO SCH (09:43)
[2021-07-22] MEDS: LACTULOSE 20 GM/30 ML UDCUP PO SCH ×3 (09:44→15:35)
[2021-07-22] MEDS: DOCUSATE SODIUM 100 MG CAPSULE PO SCH (09:44)
[2021-07-22] MEDS: POLYETHYLENE GLYCOL POWDER 17 GM PACK PO SCH (09:44)
[2021-07-22] MEDS: INSULIN REGULAR 100 UNIT/ML SUBCUT SCH ×3 (10:03→15:35)
[2021-07-22] MEDS: FUROSEMIDE 40 MG/4 ML VIAL IV SCH ×2 (10:04→15:35)
[2021-07-22] MEDS: INSULIN GLARGINE 100 UNIT/ML SUBCUT SCH (13:07)
[2021-07-22] MEDS: DESITIN 4OZ/NYSTATIN 15 GRAM MIXTURE PASTE TOP SCH (13:10)
[2021-07-22 13:15] VITALS: BP 104/48
== END 2021-07-22 17:10 | disposition home health service (06) | DRG 432 ==
LOC: N.ED 16:27 → SUATTDRO 20:33 → N.EDINP 20:33 → N.2W 23:00
PROVIDERS: ADMIT Internal Medicine; ATTEND Internal Medicine

== ENCOUNTER 2021-08-12 18:22 | Observation (INO) ==
[2021-08-12] MEDS ORDERED: FUROSEMIDE 40 MG/4 ML VIAL IV STA (23:32)
[2021-08-13 01:37] LABS: Basophils % 0.3 % (0.0-0.8); Eosinophils # 0.1 10*3/uL (0.0-0.87); Eosinophils % 1.2 % (0.00-10.9); Hematocrit 38.1 VOL% (35.7-47.0); Hemoglobin 12.4 GM/DL (12.0-16.0); Immature Granulocytes % 0.6 %; Immature Granulocytes Absolute 0.05 #; Lymphocytes % 23.6 % (21.3-54.2); Mean Corpuscular HGB Conc 32.5 GM/DL (32-36); Mean Corpuscular Volume 93.4 FL (87-102); Mean Platelet Volume 10.4 FL (9.6-12.0); Monocytes % 8.1 % (1.7-12.7); Neutrophils % 66.2 % (38.7-73.9); Platelet Count 250 T/CUMM (130-400); Red Blood Count 4.08 MC/CUMM (3.8-5.5); Red Cell Distribution Width 13.2 % (9.3-17.3); White Blood Count 8.7 T/CUMM (4-12)
[2021-08-13 01:56] LABS: Albumin 2.3 G/DL (3.4-5.0); Bilirubin,Total 0.9 MG/DL (0.20-1.00); Calcium 8.8 MG/DL (8.5-10.1); Osmolality,Calculated 277.8 MOS/KG (273-304); Total Protein 7.2 G/DL (6.4-8.2)
[2021-08-13] MEDS ORDERED: DEXTROSE 50% 25 GM/50 ML SYRINGE IV PRN (02:09)
[2021-08-13] MEDS ORDERED: ONDANSETRON 4 MG/2 ML VIAL IV PRN (02:09)
[2021-08-13] MEDS ORDERED: GLUCAGON 1 MG VIAL IM PRN ×2 (02:09→02:43)
[2021-08-13] MEDS ORDERED: DEXTROSE 50% 25 GM/50 ML VIAL IV PRN (02:43)
[2021-08-13 03:02] LABS: PT Patient Result 11.3 SECS (10.5-12.0); Partial Thromboplastin Time 27.9 SECS (23.8-32.1)
[2021-08-13] MEDS: INSULIN REGULAR 100 UNIT/ML SUBCUT SCH ×4 (08:35→23:52)
[2021-08-13] MEDS: MORPHINE 2 MG/1 ML SYRINGE IV PRN ×2 (08:40→19:05)
[2021-08-13] MEDS: MONTELUKAST 10 MG TABLET PO SCH (11:00)
[2021-08-13] MEDS: METOPROLOL TARTRATE 50 MG TABLET PO SCH ×2 (11:00→20:57)
[2021-08-13] MEDS: LEVOTHYROXINE 125 MCG TABLET PO SCH (11:00)
[2021-08-13] MEDS: LACTULOSE 20 GM/30 ML UDCUP PO SCH ×2 (11:00→20:57)
[2021-08-13] MEDS: FUROSEMIDE 40 MG TABLET PO SCH (11:00)
[2021-08-13] MEDS: DILTIAZEM CD 120 MG CAPSULE PO SCH (11:00)
[2021-08-13] MEDS: PANTOPRAZOLE 40 MG TABLET PO SCH (11:00)
[2021-08-13] MEDS: SPIRONOLACTONE 25 MG TABLET PO SCH ×2 (11:00→20:56)
[2021-08-13] MEDS: ASPIRIN EC 81 MG TABLET PO SCH (13:47)
[2021-08-14] MEDS: MORPHINE 2 MG/1 ML SYRINGE IV PRN (04:32)
[2021-08-14 05:32] LABS: Calcium 8.7 MG/DL (8.5-10.1)
[2021-08-14] MEDS: INSULIN REGULAR 100 UNIT/ML SUBCUT SCH ×4 (07:56→21:19)
[2021-08-14] MEDS: PANTOPRAZOLE 40 MG TABLET PO SCH (08:42)
[2021-08-14] MEDS: MONTELUKAST 10 MG TABLET PO SCH (08:42)
[2021-08-14] MEDS: LACTULOSE 20 GM/30 ML UDCUP PO SCH ×2 (08:42→21:19)
[2021-08-14] MEDS: SPIRONOLACTONE 25 MG TABLET PO SCH ×2 (08:43→21:19)
[2021-08-14] MEDS: DILTIAZEM CD 120 MG CAPSULE PO SCH (08:43)
[2021-08-14] MEDS: LEVOTHYROXINE 125 MCG TABLET PO SCH (08:43)
[2021-08-14] MEDS: FUROSEMIDE 40 MG TABLET PO SCH (08:43)
[2021-08-14] MEDS: METOPROLOL TARTRATE 50 MG TABLET PO SCH ×2 (08:43→21:20)
[2021-08-14] MEDS: ASPIRIN EC 81 MG TABLET PO SCH (08:43)
[2021-08-14] MEDS ORDERED: ALBUMIN 25% 12.5 GM/50 ML VIAL IV ONE ×2 (12:02)
[2021-08-14] MEDS: SKIN HEALING OINT (AQUAPHOR) 50 GM TUBE TOP SCH (12:25)
[2021-08-14] MEDS: DESITIN 4OZ/NYSTATIN 15 GRAM MIXTURE PASTE TOP SCH ×2 (12:25→21:21)
[2021-08-15 06:45] LABS: Basophils % 0.4 % (0.0-0.8); Eosinophils # 0.2 10*3/uL (0.0-0.87); Eosinophils % 2.5 % (0.00-10.9); Hematocrit 33.8 VOL% (35.7-47.0); Hemoglobin 11.3 GM/DL (12.0-16.0); Immature Granulocytes % 0.3 %; Immature Granulocytes Absolute 0.02 #; Lymphocytes # 1.6 10*3/uL (1.4-4.0); Lymphocytes % 19.5 % (21.3-54.2); Mean Corpuscular HGB Conc 33.4 GM/DL (32-36); Mean Corpuscular Volume 92.3 FL (87-102); Mean Platelet Volume 10.7 FL (9.6-12.0); Monocytes % 9.8 % (1.7-12.7); Neutrophils % 67.5 % (38.7-73.9); Platelet Count 219 T/CUMM (130-400); Red Blood Count 3.66 MC/CUMM (3.8-5.5); Red Cell Distribution Width 13.2 % (9.3-17.3)
[2021-08-15 07:05] LABS: Calcium 7.9 MG/DL (8.5-10.1); Osmolality,Calculated 279.7 MOS/KG (273-304); Potassium 3.5 MMOL/L (3.5-5.1)
[2021-08-15] MEDS: INSULIN REGULAR 100 UNIT/ML SUBCUT SCH ×2 (08:25→12:40)
[2021-08-15] MEDS: METOPROLOL TARTRATE 50 MG TABLET PO SCH (08:26)
[2021-08-15] MEDS: DILTIAZEM CD 120 MG CAPSULE PO SCH (08:26)
[2021-08-15] MEDS: ASPIRIN EC 81 MG TABLET PO SCH (08:26)
[2021-08-15] MEDS: LACTULOSE 20 GM/30 ML UDCUP PO SCH ×2 (08:26→08:30)
[2021-08-15] MEDS: SPIRONOLACTONE 25 MG TABLET PO SCH (08:26)
[2021-08-15] MEDS: MONTELUKAST 10 MG TABLET PO SCH (08:26)
[2021-08-15] MEDS: SKIN HEALING OINT (AQUAPHOR) 50 GM TUBE TOP SCH (08:26)
[2021-08-15] MEDS: PANTOPRAZOLE 40 MG TABLET PO SCH (08:26)
[2021-08-15] MEDS: FUROSEMIDE 40 MG TABLET PO SCH (08:26)
[2021-08-15] MEDS: DESITIN 4OZ/NYSTATIN 15 GRAM MIXTURE PASTE TOP SCH (08:27)
[2021-08-15 11:55] VITALS: BP 95/65
[2021-08-16] MEDS ORDERED: LEVOTHYROXINE 125 MCG TABLET PO SCH (06:30)
== END 2021-08-15 13:55 | disposition home health service (06) ==
LOC: N.EDINP 18:22 → N.ED 18:22 → N.3E 08-13 14:30
PROVIDERS: ADMIT Internal Medicine; ATTEND Internal Medicine

== ENCOUNTER 2022-03-18 14:40 | Inpatient (IN) ==
[2022-03-18 16:26] LABS: Basophils % 0.3 % (0.0-0.8); Eosinophils % 0.2 % (0.00-10.9); Hematocrit 42.8 VOL% (35.7-47.0); Hemoglobin 14.2 GM/DL (12.0-16.0); Immature Granulocytes % 0.3 %; Immature Granulocytes Absolute 0.03 #; Lymphocytes # 0.9 10*3/uL (1.4-4.0); Lymphocytes % 9.3 % (21.3-54.2); Mean Corpuscular HGB Conc 33.2 GM/DL (32-36); Mean Platelet Volume 10.8 FL (9.6-12.0); Monocytes # 0.7 10*3/uL (0.11-0.8); Monocytes % 6.9 % (1.7-12.7); Platelet Count 271 T/CUMM (130-400); Red Cell Distribution Width 13.2 % (9.3-17.3); White Blood Count 9.5 T/CUMM (4-12)
[2022-03-18 16:38] LABS: PT Patient Result 10.9 SECS (10.5-12.0); Partial Thromboplastin Time 22.3 SECS (23.7-32.9)
[2022-03-18 16:54] LABS: Albumin 2.1 G/DL (3.4-5.0); Calcium 8.6 MG/DL (8.5-10.1); Osmolality,Calculated 280.7 MOS/KG (273-304); Potassium 4.7 MMOL/L (3.5-5.1)
[2022-03-18 16:55] LABS: Bilirubin,Total 1.3 MG/DL (0.20-1.00); Total Protein 6.7 G/DL (6.4-8.2)
[2022-03-18 17:26] LABS: Bacteria,Urine Many /HPF (Few); Hyaline Casts,Urine 49 /LPF (0-3); Mucus,Urine Many /LPF (Occasional); RBC,Urine 15-20 /HPF (0-4); Squamous Epithelial Cell,Urine Occasional /HPF (0-10)
[2022-03-18 17:29] LABS: Bilirubin,Urine Moderate mg/dL (Negative); Blood, Urine Trace mg/dL (Negative); Glucose,Urine (UA) Negative (Negative); Ketones,Urine Trace mg/dL (Negative); Nitrite,Urine Positive (Negative); Protein,Urine 30 mg/dL (Negative); Urine Appearance Clear (Clear); Urine Color Yellow (Yellow); Urine Specific Gravity 1.025 (1.001-1.035); Urine pH 5.5 (4.5-8.0)
[2022-03-18] MEDS ORDERED: LEVOFLOXACIN INJ 750 MG/150 ML PREMIX IV ONE (18:02)
[2022-03-18] MEDS ORDERED: DEXTROSE 50% 25 GM/50 ML VIAL IV PRN (18:51)
[2022-03-18] MEDS ORDERED: GLUCAGON 1 MG VIAL IM PRN (18:51)
[2022-03-18] MEDS ORDERED: ACETAMINOPHEN 325 MG TABLET PO PRN (18:51)
[2022-03-18] MEDS ORDERED: DEXTROSE 10% 250 ML BAG IV PRN (19:00)
[2022-03-18] MEDS: INSULIN REGULAR 100 UNIT/ML SUBCUT SCH (22:36)
[2022-03-18] MEDS: SPIRONOLACTONE 50 MG TABLET PO SCH (22:36)
[2022-03-19 05:07] LABS: Basophils % 0.2 % (0.0-0.8); Eosinophils # 0.1 10*3/uL (0.0-0.87); Eosinophils % 0.6 % (0.00-10.9); Hematocrit 38.8 VOL% (35.7-47.0); Hemoglobin 12.7 GM/DL (12.0-16.0); Immature Granulocytes % 0.3 %; Immature Granulocytes Absolute 0.03 #; Lymphocytes # 1.5 10*3/uL (1.4-4.0); Lymphocytes % 17.1 % (21.3-54.2); Mean Corpuscular HGB Conc 32.7 GM/DL (32-36); Mean Corpuscular Volume 93.3 FL (87-102); Mean Platelet Volume 11.8 FL (9.6-12.0); Monocytes # 0.8 10*3/uL (0.11-0.8); Monocytes % 9.5 % (1.7-12.7); Neutrophils % 72.3 % (38.7-73.9); Platelet Count 248 T/CUMM (130-400); Red Blood Count 4.16 MC/CUMM (3.8-5.5); Red Cell Distribution Width 13.2 % (9.3-17.3); White Blood Count 8.8 T/CUMM (4-12)
[2022-03-19 05:23] LABS: Albumin 1.7 G/DL (3.4-5.0); Bilirubin,Total 0.9 MG/DL (0.20-1.00); Calcium 8.7 MG/DL (8.5-10.1); Osmolality,Calculated 279.5 MOS/KG (273-304); Potassium 4.7 MMOL/L (3.5-5.1); Total Protein 6.5 G/DL (6.4-8.2)
[2022-03-19] MEDS: LEVOTHYROXINE 125 MCG TABLET PO SCH (05:50)
[2022-03-19] MEDS: INSULIN REGULAR 100 UNIT/ML SUBCUT SCH ×4 (08:36→21:02)
[2022-03-19] MEDS ORDERED: MEROPENEM 1,000 MG in SODIUM CHLORIDE 0.9% 100 ML IV SCH (09:00)
[2022-03-19] MEDS ORDERED: PANTOPRAZOLE 40 MG TABLET PO SCH (09:00)
[2022-03-19] MEDS: FUROSEMIDE 40 MG TABLET PO SCH ×2 (10:04→10:08)
[2022-03-19] MEDS: SPIRONOLACTONE 50 MG TABLET PO SCH ×2 (10:05→21:01)
[2022-03-19] MEDS: CITALOPRAM 20 MG TABLET PO SCH ×2 (10:06→10:07)
[2022-03-19] MEDS: PANTOPRAZOLE 40 MG TABLET PO SCH (10:07)
[2022-03-19] MEDS: MONTELUKAST 10 MG TABLET PO SCH (10:08)
[2022-03-19] MEDS: FLUCONAZOLE 200 MG TABLET PO SCH (10:08)
[2022-03-19] MEDS: MEROPENEM 500 MG in SODIUM CHLORIDE 0.9% 100 ML IV SCH ×3 (10:12→22:40)
[2022-03-19] MEDS: DILTIAZEM 60 MG TABLET PO SCH (10:16)
[2022-03-19] MEDS: ONDANSETRON 4 MG/2 ML VIAL IV PRN (13:38)
[2022-03-19] MEDS: DESITIN 4OZ/NYSTATIN 15 GRAM MIXTURE PASTE TOP SCH ×2 (17:51→22:14)
[2022-03-19] MEDS ORDERED: LEVOFLOXACIN INJ 250 MG/50 ML PREMIX IV SCH (20:00)
[2022-03-20] MEDS: MEROPENEM 500 MG in SODIUM CHLORIDE 0.9% 100 ML IV SCH ×4 (04:04→21:40)
[2022-03-20 05:22] LABS: Basophils % 0.5 % (0.0-0.8); Eosinophils # 0.1 10*3/uL (0.0-0.87); Hematocrit 34.8 VOL% (35.7-47.0); Hemoglobin 11.5 GM/DL (12.0-16.0); Immature Granulocytes % 0.2 %; Immature Granulocytes Absolute 0.01 #; Lymphocytes # 1.3 10*3/uL (1.4-4.0); Mean Corpuscular Volume 93.5 FL (87-102); Mean Platelet Volume 10.8 FL (9.6-12.0); Monocytes # 0.7 10*3/uL (0.11-0.8); Monocytes % 10.7 % (1.7-12.7); Neutrophils % 66.6 % (38.7-73.9); Platelet Count 229 T/CUMM (130-400); Red Blood Count 3.72 MC/CUMM (3.8-5.5); Red Cell Distribution Width 13.2 % (9.3-17.3); White Blood Count 6.3 T/CUMM (4-12)
[2022-03-20 05:49] LABS: Albumin 1.6 G/DL (3.4-5.0); Bilirubin,Total 0.8 MG/DL (0.20-1.00); Calcium 8.1 MG/DL (8.5-10.1); Osmolality,Calculated 280.4 MOS/KG (273-304); Potassium 3.9 MMOL/L (3.5-5.1); Total Protein 5.8 G/DL (6.4-8.2)
[2022-03-20] MEDS: SPIRONOLACTONE 50 MG TABLET PO SCH ×2 (09:16→21:36)
[2022-03-20] MEDS: DILTIAZEM 60 MG TABLET PO SCH (09:16)
[2022-03-20] MEDS: FUROSEMIDE 40 MG TABLET PO SCH (09:16)
[2022-03-20] MEDS: CITALOPRAM 20 MG TABLET PO SCH (09:17)
[2022-03-20] MEDS: PANTOPRAZOLE 40 MG TABLET PO SCH (09:17)
[2022-03-20] MEDS: MONTELUKAST 10 MG TABLET PO SCH (09:17)
[2022-03-20] MEDS: LEVOTHYROXINE 125 MCG TABLET PO SCH (09:17)
[2022-03-20] MEDS: FLUCONAZOLE 200 MG TABLET PO SCH (09:17)
[2022-03-20] MEDS: DESITIN 4OZ/NYSTATIN 15 GRAM MIXTURE PASTE TOP SCH ×2 (09:20→22:16)
[2022-03-20] MEDS: INSULIN REGULAR 100 UNIT/ML SUBCUT SCH ×4 (09:20→21:38)
[2022-03-20] MEDS ORDERED: ALBUMIN 25% 12.5 GM/50 ML VIAL IV ONE (15:05)
[2022-03-20] MEDS ORDERED: TISSUE ADHESIVE 1 EACH APPLICATOR TOP ONE (15:38)
[2022-03-20] MEDS: ONDANSETRON 4 MG/2 ML VIAL IV PRN (21:40)
[2022-03-21] MEDS: MEROPENEM 500 MG in SODIUM CHLORIDE 0.9% 100 ML IV SCH ×4 (04:30→21:23)
[2022-03-21] MEDS: LEVOTHYROXINE 125 MCG TABLET PO SCH (07:14)
[2022-03-21] MEDS: FUROSEMIDE 40 MG TABLET PO SCH (08:51)
[2022-03-21] MEDS: FLUCONAZOLE 200 MG TABLET PO SCH (08:51)
[2022-03-21] MEDS: CITALOPRAM 20 MG TABLET PO SCH (08:51)
[2022-03-21] MEDS: MONTELUKAST 10 MG TABLET PO SCH (08:52)
[2022-03-21] MEDS: DILTIAZEM 60 MG TABLET PO SCH (08:52)
[2022-03-21] MEDS: PANTOPRAZOLE 40 MG TABLET PO SCH (08:52)
[2022-03-21] MEDS: SPIRONOLACTONE 50 MG TABLET PO SCH ×2 (08:52→20:28)
[2022-03-21] MEDS: DESITIN 4OZ/NYSTATIN 15 GRAM MIXTURE PASTE TOP SCH ×2 (08:53→20:28)
[2022-03-21] MEDS: INSULIN REGULAR 100 UNIT/ML SUBCUT SCH ×4 (08:53→20:28)
[2022-03-21 08:59] LABS: Basophils % 0.4 % (0.0-0.8); Eosinophils # 0.1 10*3/uL (0.0-0.87); Eosinophils % 1.7 % (0.00-10.9); Hematocrit 37.4 VOL% (35.7-47.0); Hemoglobin 12.4 GM/DL (12.0-16.0); Immature Granulocytes % 0.4 %; Immature Granulocytes Absolute 0.02 #; Lymphocytes # 1.4 10*3/uL (1.4-4.0); Lymphocytes % 26.4 % (21.3-54.2); Mean Corpuscular HGB Conc 33.2 GM/DL (32-36); Mean Corpuscular Volume 93.3 FL (87-102); Mean Platelet Volume 11.1 FL (9.6-12.0); Monocytes # 0.5 10*3/uL (0.11-0.8); Monocytes % 9.9 % (1.7-12.7); Neutrophils % 61.2 % (38.7-73.9); Platelet Count 216 T/CUMM (130-400); Red Blood Count 4.01 MC/CUMM (3.8-5.5); Red Cell Distribution Width 13.1 % (9.3-17.3); White Blood Count 5.4 T/CUMM (4-12)
[2022-03-21 09:14] LABS: Calcium 8.2 MG/DL (8.5-10.1); Osmolality,Calculated 280.4 MOS/KG (273-304); Potassium 3.5 MMOL/L (3.5-5.1)
[2022-03-21] MEDS: PHENAZOPYRIDINE 95 MG TABLET PO SCH ×2 (12:27→16:33)
[2022-03-21 13:18] LABS: Neutrophils,Peritoneal Fluid 4 %; RBC,Peritoneal Fluid < 1 T/CUMM
[2022-03-22] MEDS: MEROPENEM 500 MG in SODIUM CHLORIDE 0.9% 100 ML IV SCH (04:16)
[2022-03-22] MEDS ORDERED: LEVOFLOXACIN INJ 500 MG/100 ML PREMIX IV SCH (06:00)
[2022-03-22] MEDS: LEVOTHYROXINE 125 MCG TABLET PO SCH (06:12)
[2022-03-22 06:15] LABS: Basophils % 0.5 % (0.0-0.8); Eosinophils # 0.1 10*3/uL (0.0-0.87); Eosinophils % 2.4 % (0.00-10.9); Hemoglobin 11.7 GM/DL (12.0-16.0); Immature Granulocytes % 0.3 %; Immature Granulocytes Absolute 0.02 #; Lymphocytes # 1.5 10*3/uL (1.4-4.0); Lymphocytes % 25.5 % (21.3-54.2); Mean Corpuscular HGB Conc 32.5 GM/DL (32-36); Mean Corpuscular Volume 93.3 FL (87-102); Monocytes # 0.7 10*3/uL (0.11-0.8); Monocytes % 11.5 % (1.7-12.7); Neutrophils % 59.8 % (38.7-73.9); Platelet Count 213 T/CUMM (130-400); Red Blood Count 3.86 MC/CUMM (3.8-5.5); Red Cell Distribution Width 13.2 % (9.3-17.3); White Blood Count 5.9 T/CUMM (4-12)
[2022-03-22 06:24] LABS: Calcium 7.8 MG/DL (8.5-10.1); Osmolality,Calculated 280.5 MOS/KG (273-304); Potassium 3.8 MMOL/L (3.5-5.1)
[2022-03-22] MEDS ORDERED: MAGNESIUM SULF RIDER 2 GM/50 ML PREMIX IV ONE (08:23)
[2022-03-22] MEDS: SPIRONOLACTONE 50 MG TABLET PO SCH (09:40)
[2022-03-22] MEDS: PANTOPRAZOLE 40 MG TABLET PO SCH (09:40)
[2022-03-22] MEDS: MONTELUKAST 10 MG TABLET PO SCH (09:40)
[2022-03-22] MEDS: FUROSEMIDE 40 MG TABLET PO SCH (09:41)
[2022-03-22] MEDS: CITALOPRAM 20 MG TABLET PO SCH (09:41)
[2022-03-22] MEDS: DESITIN 4OZ/NYSTATIN 15 GRAM MIXTURE PASTE TOP SCH (09:41)
[2022-03-22] MEDS: PHENAZOPYRIDINE 95 MG TABLET PO SCH ×2 (09:51→11:59)
[2022-03-22] MEDS: DILTIAZEM 60 MG TABLET PO SCH (09:52)
[2022-03-22] MEDS: INSULIN REGULAR 100 UNIT/ML SUBCUT SCH ×2 (11:16→11:57)
[2022-03-22 11:53] VITALS: BP 102/50
== END 2022-03-22 15:00 | disposition home health service (06) | DRG 442 ==
LOC: N.ED 14:40 → N.EDINP 14:40 → N.3E 20:25 → SUATTDRO 03-19 08:41
PROVIDERS: ADMIT Internal Medicine; ATTEND Internal Medicine

== ENCOUNTER 2022-10-12 14:24 | Inpatient (IN) ==
[2022-10-12] MEDS ORDERED: ONDANSETRON 4 MG/2 ML VIAL IV STA (15:04)
[2022-10-12] MEDS ORDERED: SODIUM CHLORIDE 0.9% 500 ML IV STA (15:04)
[2022-10-12 16:18] LABS: Alanine Aminotransferase 21 U/L (13-56); Albumin 1.8 G/DL (3.4-5.0); Alkaline Phosphatase 160 U/L (45-117); Amylase 64 U/L (25-115); Aspartate Amino Transferase 36 U/L (0-37); Blood Urea Nitrogen 17 MG/DL (7-18); Calcium 8.2 MG/DL (8.5-10.1); Carbon Dioxide 23 MMOL/L (21-32); Chloride 108 MMOL/L (98-107); Glucose 216 MG/DL (74-106); Osmolality,Calculated 285.5 MOS/KG (273-304); Potassium 4.6 MMOL/L (3.5-5.1); Sodium 139 MMOL/L (136-145); Total Protein 7.1 G/DL (6.4-8.2)
[2022-10-12 17:35] LABS: Basophils % 0.1 % (0.0-0.8); Eosinophils % 0.3 % (0.00-10.9); Hematocrit 35.9 VOL% (35.7-47.0); Hemoglobin 11.7 GM/DL (12.0-16.0); Immature Granulocytes % 0.5 %; Immature Granulocytes Absolute 0.04 #; Lymphocytes # 0.6 10*3/uL (1.4-4.0); Lymphocytes % 8.4 % (21.3-54.2); Mean Corpuscular HGB Conc 32.6 GM/DL (32-36); Mean Corpuscular Volume 94.7 FL (87-102); Mean Platelet Volume 10.1 FL (9.6-12.0); Monocytes # 0.5 10*3/uL (0.11-0.8); Monocytes % 7.2 % (1.7-12.7); Neutrophils % 83.5 % (38.7-73.9); Platelet Count 167 T/CUMM (130-400); Red Blood Count 3.79 MC/CUMM (3.8-5.5); Red Cell Distribution Width 15.4 % (9.3-17.3)
[2022-10-12] MEDS ORDERED: ONDANSETRON 4 MG TABLET PO PRN (18:07)
[2022-10-12] MEDS ORDERED: GLUCAGON 1 MG VIAL IM PRN (18:21)
[2022-10-12] MEDS ORDERED: DEXTROSE 10% 250 ML BAG IV PRN (19:07)
[2022-10-12] MEDS: LACTULOSE 20 GM/30 ML UDCUP PO SCH (22:14)
[2022-10-12] MEDS: SPIRONOLACTONE 50 MG TABLET PO SCH (22:15)
[2022-10-12] MEDS: INSULIN LISPRO 100 UNIT/ML SUBCUT SCH (22:33)
[2022-10-13] MEDS ORDERED: FUROSEMIDE 40 MG TABLET PO SCH (09:00)
[2022-10-13] MEDS ORDERED: TISSUE ADHESIVE 1 EACH APPLICATOR TOP ONE (09:05)
[2022-10-13 09:30] LABS: Basophils % 0.5 % (0.0-0.8); Eosinophils # 0.1 10*3/uL (0.0-0.87); Eosinophils % 2.4 % (0.00-10.9); Hematocrit 32.6 VOL% (35.7-47.0); Hemoglobin 10.6 GM/DL (12.0-16.0); Immature Granulocytes % 0.4 %; Immature Granulocytes Absolute 0.02 #; Lymphocytes # 1.2 10*3/uL (1.4-4.0); Lymphocytes % 22.4 % (21.3-54.2); Mean Corpuscular HGB Conc 32.5 GM/DL (32-36); Mean Platelet Volume 9.8 FL (9.6-12.0); Monocytes # 0.5 10*3/uL (0.11-0.8); Monocytes % 8.9 % (1.7-12.7); Neutrophils % 65.4 % (38.7-73.9); Platelet Count 173 T/CUMM (130-400); Red Blood Count 3.43 MC/CUMM (3.8-5.5); Red Cell Distribution Width 15.6 % (9.3-17.3); White Blood Count 5.48 T/CUMM (4-12)
[2022-10-13] MEDS: INSULIN LISPRO 100 UNIT/ML SUBCUT SCH ×4 (09:37→22:59)
[2022-10-13 09:50] LABS: Albumin 1.5 G/DL (3.4-5.0); Bilirubin,Total 1.8 MG/DL (0.20-1.00); Calcium 8.4 MG/DL (8.5-10.1); Osmolality,Calculated 291.7 MOS/KG (273-304); Potassium 4.2 MMOL/L (3.5-5.1); Total Protein 5.8 G/DL (6.4-8.2)
[2022-10-13] MEDS: LACTULOSE 20 GM/30 ML UDCUP PO SCH ×2 (12:49→22:53)
[2022-10-13] MEDS: SPIRONOLACTONE 50 MG TABLET PO SCH ×2 (12:49→22:53)
[2022-10-13] MEDS: CITALOPRAM 20 MG TABLET PO SCH (12:49)
[2022-10-13] MEDS: MONTELUKAST 10 MG TABLET PO SCH (12:49)
[2022-10-13] MEDS: LEVOTHYROXINE 125 MCG TABLET PO SCH (12:49)
[2022-10-13] MEDS: PANTOPRAZOLE 40 MG TABLET PO SCH (12:50)
[2022-10-13] MEDS: ACETAMINOPHEN 325 MG TABLET PO PRN ×2 (15:57→22:53)
[2022-10-13] MEDS: FUROSEMIDE 40 MG TABLET PO SCH (22:57)
[2022-10-14] MEDS: LEVOTHYROXINE 125 MCG TABLET PO SCH ×2 (04:10)
[2022-10-14 05:40] LABS: Basophils % 0.5 % (0.0-0.8); Eosinophils # 0.2 10*3/uL (0.0-0.87); Eosinophils % 2.6 % (0.00-10.9); Hematocrit 30.2 VOL% (35.7-47.0); Hemoglobin 9.8 GM/DL (12.0-16.0); Immature Granulocytes % 0.5 %; Immature Granulocytes Absolute 0.03 #; Lymphocytes # 1.4 10*3/uL (1.4-4.0); Lymphocytes % 21.7 % (21.3-54.2); Mean Corpuscular HGB Conc 32.5 GM/DL (32-36); Mean Platelet Volume 10.2 FL (9.6-12.0); Monocytes # 0.7 10*3/uL (0.11-0.8); Monocytes % 11.2 % (1.7-12.7); Neutrophils % 63.5 % (38.7-73.9); Platelet Count 181 T/CUMM (130-400); Red Blood Count 3.18 MC/CUMM (3.8-5.5); Red Cell Distribution Width 15.5 % (9.3-17.3)
[2022-10-14 05:54] LABS: Calcium 7.9 MG/DL (8.5-10.1); Osmolality,Calculated 291.8 MOS/KG (273-304); Potassium 3.9 MMOL/L (3.5-5.1)
[2022-10-14] MEDS: INSULIN LISPRO 100 UNIT/ML SUBCUT SCH ×4 (07:56→21:39)
[2022-10-14] MEDS: LACTULOSE 20 GM/30 ML UDCUP PO SCH (09:37)
[2022-10-14] MEDS: SPIRONOLACTONE 50 MG TABLET PO SCH (09:38)
[2022-10-14] MEDS: CITALOPRAM 20 MG TABLET PO SCH (09:38)
[2022-10-14] MEDS: APIXABAN 5 MG TABLET PO SCH (09:38)
[2022-10-14] MEDS: MONTELUKAST 10 MG TABLET PO SCH (09:38)
[2022-10-14] MEDS: PANTOPRAZOLE 40 MG TABLET PO SCH (09:39)
[2022-10-14] MEDS: FUROSEMIDE 40 MG TABLET PO SCH (09:39)
[2022-10-14] MEDS: POLYETHYLENE GLYCOL POWDER 17 GM PACK PO PRN (09:40)
[2022-10-14] MEDS: NYSTATIN CREAM 15 GM TUBE TOP SCH ×2 (17:40→21:39)
[2022-10-14] MEDS: SPIRONOLACTONE 100 MG TABLET PO SCH (21:39)
[2022-10-14] MEDS: FUROSEMIDE 20 MG TABLET PO SCH (21:39)
[2022-10-15] MEDS: LACTULOSE 20 GM/30 ML UDCUP PO SCH ×4 (00:22→18:02)
[2022-10-15 04:08] LABS: Basophils % 0.3 % (0.0-0.8); Eosinophils # 0.2 10*3/uL (0.0-0.87); Eosinophils % 2.7 % (0.00-10.9); Hematocrit 30.7 VOL% (35.7-47.0); Immature Granulocytes % 0.3 %; Immature Granulocytes Absolute 0.02 #; Lymphocytes # 1.4 10*3/uL (1.4-4.0); Lymphocytes % 20.4 % (21.3-54.2); Mean Corpuscular HGB Conc 32.6 GM/DL (32-36); Mean Corpuscular Volume 94.5 FL (87-102); Mean Platelet Volume 10.3 FL (9.6-12.0); Monocytes # 0.8 10*3/uL (0.11-0.8); Monocytes % 12.5 % (1.7-12.7); Neutrophils % 63.8 % (38.7-73.9); Platelet Count 186 T/CUMM (130-400); Red Blood Count 3.25 MC/CUMM (3.8-5.5); Red Cell Distribution Width 15.6 % (9.3-17.3); White Blood Count 6.71 T/CUMM (4-12)
[2022-10-15 04:27] LABS: Calcium 8.1 MG/DL (8.5-10.1); Osmolality,Calculated 279.5 MOS/KG (273-304); Potassium 3.7 MMOL/L (3.5-5.1)
[2022-10-15] MEDS: LEVOTHYROXINE 125 MCG TABLET PO SCH (06:50)
[2022-10-15] MEDS: FUROSEMIDE 20 MG TABLET PO SCH ×2 (10:05→21:57)
[2022-10-15] MEDS: APIXABAN 5 MG TABLET PO SCH (10:05)
[2022-10-15] MEDS: SPIRONOLACTONE 100 MG TABLET PO SCH ×2 (10:05→21:57)
[2022-10-15] MEDS: CITALOPRAM 20 MG TABLET PO SCH (10:05)
[2022-10-15] MEDS: MONTELUKAST 10 MG TABLET PO SCH (10:06)
[2022-10-15] MEDS: PANTOPRAZOLE 40 MG TABLET PO SCH (10:06)
[2022-10-15] MEDS: POLYETHYLENE GLYCOL POWDER 17 GM PACK PO PRN (10:06)
[2022-10-15] MEDS: NYSTATIN CREAM 15 GM TUBE TOP SCH ×2 (10:06→21:57)
[2022-10-15] MEDS: INSULIN LISPRO 100 UNIT/ML SUBCUT SCH ×4 (13:07→21:57)
[2022-10-15] MEDS ORDERED: LINACLOTIDE 145 MCG CAPSULE PO ONE (16:09)
[2022-10-15] MEDS ORDERED: LUBIPROSTONE 24 MCG CAPSULE PO ONE (16:10)
[2022-10-15] MEDS: ZINC OXIDE 16% PASTE 57 GM TUBE TOP SCH (21:58)
[2022-10-16] MEDS: LACTULOSE 20 GM/30 ML UDCUP PO SCH ×5 (01:13→23:30)
[2022-10-16] MEDS: LEVOTHYROXINE 125 MCG TABLET PO SCH (05:47)
[2022-10-16 06:06] LABS: Calcium 8.2 MG/DL (8.5-10.1); Osmolality,Calculated 278.7 MOS/KG (273-304); Potassium 4.2 MMOL/L (3.5-5.1)
[2022-10-16 06:21] LABS: Basophils % 0.1 % (0.0-0.8); Eosinophils % 0.4 % (0.00-10.9); Hematocrit 30.7 VOL% (35.7-47.0); Hemoglobin 10.3 GM/DL (12.0-16.0); Immature Granulocytes % 0.4 %; Immature Granulocytes Absolute 0.03 #; Lymphocytes # 0.9 10*3/uL (1.4-4.0); Lymphocytes % 10.5 % (21.3-54.2); Mean Corpuscular HGB Conc 33.6 GM/DL (32-36); Mean Corpuscular Volume 94.2 FL (87-102); Mean Platelet Volume 10.4 FL (9.6-12.0); Monocytes # 0.8 10*3/uL (0.11-0.8); Monocytes % 8.9 % (1.7-12.7); Neutrophils % 79.7 % (38.7-73.9); Platelet Count 200 T/CUMM (130-400); Red Blood Count 3.26 MC/CUMM (3.8-5.5); Red Cell Distribution Width 15.7 % (9.3-17.3); White Blood Count 8.42 T/CUMM (4-12)
[2022-10-16] MEDS: INSULIN LISPRO 100 UNIT/ML SUBCUT SCH ×4 (07:33→21:45)
[2022-10-16] MEDS: APIXABAN 5 MG TABLET PO SCH (08:49)
[2022-10-16] MEDS: SPIRONOLACTONE 100 MG TABLET PO SCH ×3 (08:50→23:41)
[2022-10-16] MEDS: MONTELUKAST 10 MG TABLET PO SCH (08:50)
[2022-10-16] MEDS: FUROSEMIDE 20 MG TABLET PO SCH (08:50)
[2022-10-16] MEDS: CITALOPRAM 20 MG TABLET PO SCH (08:50)
[2022-10-16] MEDS: PANTOPRAZOLE 40 MG TABLET PO SCH (08:50)
[2022-10-16] MEDS: LINACLOTIDE 145 MCG CAPSULE PO SCH (08:50)
[2022-10-16] MEDS: NYSTATIN CREAM 15 GM TUBE TOP SCH ×2 (08:53→21:45)
[2022-10-16] MEDS: ZINC OXIDE 16% PASTE 57 GM TUBE TOP SCH ×2 (08:54→21:40)
[2022-10-16] MEDS: ONDANSETRON 4 MG/2 ML VIAL IV PRN (08:56)
[2022-10-16] MEDS: RIFAXIMIN 550 MG TABLET PO SCH ×2 (11:55→21:38)
[2022-10-16] MEDS: FUROSEMIDE 40 MG TABLET PO SCH (16:38)
[2022-10-16] MEDS: METOCLOPRAMIDE 10 MG/2 ML VIAL IV SCH ×2 (16:40→22:02)
[2022-10-17] MEDS: METOCLOPRAMIDE 10 MG/2 ML VIAL IV SCH ×2 (05:43→12:25)
[2022-10-17] MEDS: LACTULOSE 20 GM/30 ML UDCUP PO SCH ×2 (05:45→12:27)
[2022-10-17] MEDS: LEVOTHYROXINE 125 MCG TABLET PO SCH (05:45)
[2022-10-17 06:05] LABS: Basophils % 0.3 % (0.0-0.8); Eosinophils % 0.3 % (0.00-10.9); Hemoglobin 9.7 GM/DL (12.0-16.0); Immature Granulocytes % 0.5 %; Immature Granulocytes Absolute 0.02 #; Lymphocytes # 0.4 10*3/uL (1.4-4.0); Lymphocytes % 10.7 % (21.3-54.2); Mean Corpuscular HGB Conc 33.4 GM/DL (32-36); Mean Corpuscular Volume 93.9 FL (87-102); Mean Platelet Volume 9.9 FL (9.6-12.0); Monocytes # 0.5 10*3/uL (0.11-0.8); Monocytes % 11.5 % (1.7-12.7); Neutrophils % 76.7 % (38.7-73.9); Platelet Count 177 T/CUMM (130-400); Red Blood Count 3.09 MC/CUMM (3.8-5.5); Red Cell Distribution Width 15.9 % (9.3-17.3); White Blood Count 3.91 T/CUMM (4-12)
[2022-10-17 06:21] LABS: Osmolality,Calculated 281.5 MOS/KG (273-304)
[2022-10-17] MEDS ORDERED: MAGNESIUM SULF RIDER 2 GM/50 ML PREMIX IV PRN (06:29)
[2022-10-17] MEDS: PANTOPRAZOLE 40 MG TABLET PO SCH (08:55)
[2022-10-17] MEDS: CITALOPRAM 20 MG TABLET PO SCH (08:55)
[2022-10-17] MEDS: RIFAXIMIN 550 MG TABLET PO SCH ×2 (08:55→21:43)
[2022-10-17] MEDS: APIXABAN 5 MG TABLET PO SCH (08:55)
[2022-10-17] MEDS: LINACLOTIDE 145 MCG CAPSULE PO SCH (08:56)
[2022-10-17] MEDS: SPIRONOLACTONE 100 MG TABLET PO SCH (08:56)
[2022-10-17] MEDS: FUROSEMIDE 40 MG TABLET PO SCH (08:56)
[2022-10-17] MEDS: MONTELUKAST 10 MG TABLET PO SCH (08:56)
[2022-10-17] MEDS: NYSTATIN CREAM 15 GM TUBE TOP SCH ×2 (09:03→22:02)
[2022-10-17] MEDS: INSULIN LISPRO 100 UNIT/ML SUBCUT SCH ×4 (09:03→22:10)
[2022-10-17] MEDS: ZINC OXIDE 16% PASTE 57 GM TUBE TOP SCH ×2 (09:03→22:10)
[2022-10-17] MEDS: ONDANSETRON 4 MG/2 ML VIAL IV PRN (15:35)
[2022-10-17] MEDS: LACTULOSE 320 GM/480 ML BOTTLE RECTAL SCH ×2 (16:33→23:57)
[2022-10-17] MEDS ORDERED: MAGNESIUM SULF RIDER 2 GM/50 ML PREMIX IV ONE (18:29)
[2022-10-17] MEDS ORDERED: AMINO ACIDS/DEXT/LYTES 4.25-5% 1,000 ML IV SCH (20:00)
[2022-10-18 05:48] LABS: Basophils % 0.2 % (0.0-0.8); Eosinophils # 0.1 10*3/uL (0.0-0.87); Eosinophils % 1.1 % (0.00-10.9); Hematocrit 28.4 VOL% (35.7-47.0); Hemoglobin 9.6 GM/DL (12.0-16.0); Immature Granulocytes % 0.2 %; Immature Granulocytes Absolute 0.01 #; Lymphocytes # 0.9 10*3/uL (1.4-4.0); Lymphocytes % 19.6 % (21.3-54.2); Mean Corpuscular HGB Conc 33.8 GM/DL (32-36); Mean Corpuscular Volume 94.4 FL (87-102); Mean Platelet Volume 10.1 FL (9.6-12.0); Monocytes # 0.8 10*3/uL (0.11-0.8); Monocytes % 18.3 % (1.7-12.7); Neutrophils % 60.6 % (38.7-73.9); Platelet Count 181 T/CUMM (130-400); Red Blood Count 3.01 MC/CUMM (3.8-5.5); Red Cell Distribution Width 15.9 % (9.3-17.3); White Blood Count 4.59 T/CUMM (4-12)
[2022-10-18 06:05] LABS: Calcium 8.2 MG/DL (8.5-10.1); Potassium 3.5 MMOL/L (3.5-5.1)
[2022-10-18 06:30] LABS: Anisocytosis 1+; Band Neutrophils 4 % (0-10); Eosinophils 1 % (0-10); Lymphocytes 20 % (20-55); Nucleated Red Blood Cells 2 /100 WBC (0-5); Platelet Estimate Normal; Total Cells Counted 100
[2022-10-18 06:31] LABS: Macrocytosis Slight
[2022-10-18] MEDS: INSULIN LISPRO 100 UNIT/ML SUBCUT SCH ×4 (07:04→21:54)
[2022-10-18] MEDS: NYSTATIN CREAM 15 GM TUBE TOP SCH ×2 (08:23→21:57)
[2022-10-18] MEDS: LEVOTHYROXINE 100 MCG VIAL IV SCH (08:23)
[2022-10-18] MEDS: APIXABAN 5 MG TABLET PO SCH (08:24)
[2022-10-18] MEDS: ZINC OXIDE 16% PASTE 57 GM TUBE TOP SCH ×2 (08:24→21:55)
[2022-10-18] MEDS: RIFAXIMIN 550 MG TABLET PO SCH ×2 (08:25→21:46)
[2022-10-18] MEDS: MONTELUKAST 10 MG TABLET PO SCH (08:25)
[2022-10-18] MEDS: PANTOPRAZOLE 40 MG VIAL IV SCH (08:25)
[2022-10-18] MEDS: LACTULOSE 320 GM/480 ML BOTTLE RECTAL SCH ×2 (09:00→13:33)
[2022-10-18] MEDS: LACTULOSE 20 GM/30 ML UDCUP PO SCH ×2 (15:06→21:46)
[2022-10-18] MEDS: ONDANSETRON 4 MG/2 ML VIAL IV PRN (21:54)
[2022-10-19 05:30] LABS: Basophils % 0.5 % (0.0-0.8); Eosinophils # 0.1 10*3/uL (0.0-0.87); Eosinophils % 3.2 % (0.00-10.9); Hematocrit 27.3 VOL% (35.7-47.0); Hemoglobin 9.1 GM/DL (12.0-16.0); Immature Granulocytes % 0.5 %; Immature Granulocytes Absolute 0.02 #; Lymphocytes % 22.1 % (21.3-54.2); Mean Corpuscular HGB Conc 33.3 GM/DL (32-36); Mean Corpuscular Volume 94.5 FL (87-102); Mean Platelet Volume 9.9 FL (9.6-12.0); Monocytes # 0.7 10*3/uL (0.11-0.8); Monocytes % 16.3 % (1.7-12.7); Neutrophils % 57.4 % (38.7-73.9); Platelet Count 177 T/CUMM (130-400); Red Blood Count 2.89 MC/CUMM (3.8-5.5); Red Cell Distribution Width 16.1 % (9.3-17.3); White Blood Count 4.35 T/CUMM (4-12)
[2022-10-19 05:42] LABS: Calcium 7.8 MG/DL (8.5-10.1); Osmolality,Calculated 280.5 MOS/KG (273-304); Potassium 3.2 MMOL/L (3.5-5.1)
[2022-10-19 06:16] LABS: Band Neutrophils 4 % (0-10); Eosinophils 4 % (0-10); Lymphocytes 20 % (20-55); Total Cells Counted 100
[2022-10-19 06:17] LABS: Anisocytosis 1+; Macrocytosis Slight; Platelet Estimate Normal
[2022-10-19] MEDS: LEVOTHYROXINE 100 MCG VIAL IV SCH (08:00)
[2022-10-19] MEDS: NYSTATIN CREAM 15 GM TUBE TOP SCH ×2 (08:16→22:07)
[2022-10-19] MEDS: ZINC OXIDE 16% PASTE 57 GM TUBE TOP SCH ×2 (08:16→22:08)
[2022-10-19] MEDS: INSULIN LISPRO 100 UNIT/ML SUBCUT SCH ×4 (08:16→22:06)
[2022-10-19] MEDS: LACTULOSE 20 GM/30 ML UDCUP PO SCH ×3 (10:00→22:06)
[2022-10-19] MEDS: APIXABAN 5 MG TABLET PO SCH (10:00)
[2022-10-19] MEDS: RIFAXIMIN 550 MG TABLET PO SCH ×2 (10:00→22:07)
[2022-10-19] MEDS: MONTELUKAST 10 MG TABLET PO SCH (10:00)
[2022-10-19] MEDS: PANTOPRAZOLE 40 MG VIAL IV SCH (10:00)
[2022-10-19] MEDS ORDERED: POTASSIUM CHLORIDE 20 MEQ TABLET PO PRN (12:34)
[2022-10-19] MEDS: CYANOCOBALAMIN 1000 MCG/1 ML VIAL IM SCH (13:30)
[2022-10-19] MEDS: ONDANSETRON 4 MG/2 ML VIAL IV PRN ×2 (16:30→22:06)
[2022-10-19] MEDS: SPIRONOLACTONE 100 MG TABLET PO SCH (22:06)
[2022-10-20 06:30] LABS: Basophils % 0.4 % (0.0-0.8); Eosinophils # 0.2 10*3/uL (0.0-0.87); Eosinophils % 3.3 % (0.00-10.9); Hematocrit 28.6 VOL% (35.7-47.0); Hemoglobin 9.2 GM/DL (12.0-16.0); Immature Granulocytes % 0.6 %; Immature Granulocytes Absolute 0.03 #; Lymphocytes # 1.6 10*3/uL (1.4-4.0); Lymphocytes % 29.4 % (21.3-54.2); Mean Corpuscular HGB Conc 32.2 GM/DL (32-36); Mean Corpuscular Volume 95.3 FL (87-102); Mean Platelet Volume 10.9 FL (9.6-12.0); Monocytes # 0.7 10*3/uL (0.11-0.8); Monocytes % 13.4 % (1.7-12.7); Neutrophils % 52.9 % (38.7-73.9); Platelet Count 149 T/CUMM (130-400); Red Cell Distribution Width 16.3 % (9.3-17.3); White Blood Count 5.45 T/CUMM (4-12)
[2022-10-20] MEDS: LEVOTHYROXINE 125 MCG TABLET PO SCH (06:33)
[2022-10-20 06:59] LABS: Calcium 7.8 MG/DL (8.5-10.1); Osmolality,Calculated 275.7 MOS/KG (273-304); Potassium 4.6 MMOL/L (3.5-5.1)
[2022-10-20] MEDS: INSULIN LISPRO 100 UNIT/ML SUBCUT SCH ×4 (09:49→21:21)
[2022-10-20] MEDS: CYANOCOBALAMIN 1000 MCG/1 ML VIAL IM SCH (09:50)
[2022-10-20] MEDS: PANTOPRAZOLE 40 MG VIAL IV SCH (09:51)
[2022-10-20] MEDS: RIFAXIMIN 550 MG TABLET PO SCH ×2 (09:52→21:19)
[2022-10-20] MEDS: APIXABAN 5 MG TABLET PO SCH (09:52)
[2022-10-20] MEDS: MONTELUKAST 10 MG TABLET PO SCH (09:52)
[2022-10-20] MEDS: LACTULOSE 20 GM/30 ML UDCUP PO SCH ×3 (09:53→21:17)
[2022-10-20] MEDS: NYSTATIN CREAM 15 GM TUBE TOP SCH ×2 (09:53→21:26)
[2022-10-20] MEDS: ZINC OXIDE 16% PASTE 57 GM TUBE TOP SCH ×2 (09:53→21:26)
[2022-10-20] MEDS: FUROSEMIDE 40 MG TABLET PO SCH (09:54)
[2022-10-20] MEDS: SPIRONOLACTONE 100 MG TABLET PO SCH (10:07)
[2022-10-20] MEDS: SPIRONOLACTONE 50 MG TABLET PO SCH (21:18)
[2022-10-21] MEDS: LEVOTHYROXINE 125 MCG TABLET PO SCH (05:16)
[2022-10-21 06:19] LABS: Basophils % 0.5 % (0.0-0.8); Eosinophils # 0.2 10*3/uL (0.0-0.87); Eosinophils % 3.5 % (0.00-10.9); Hematocrit 28.9 VOL% (35.7-47.0); Hemoglobin 9.3 GM/DL (12.0-16.0); Immature Granulocytes % 0.7 %; Immature Granulocytes Absolute 0.04 #; Lymphocytes # 1.2 10*3/uL (1.4-4.0); Lymphocytes % 21.5 % (21.3-54.2); Mean Corpuscular HGB Conc 32.2 GM/DL (32-36); Mean Platelet Volume 9.4 FL (9.6-12.0); Monocytes # 0.7 10*3/uL (0.11-0.8); Monocytes % 12.3 % (1.7-12.7); Neutrophils % 61.5 % (38.7-73.9); Platelet Count 172 T/CUMM (130-400); Red Blood Count 2.95 MC/CUMM (3.8-5.5); Red Cell Distribution Width 16.5 % (9.3-17.3); White Blood Count 5.78 T/CUMM (4-12)
[2022-10-21 06:47] LABS: Calcium 7.9 MG/DL (8.5-10.1); Osmolality,Calculated 277.7 MOS/KG (273-304); Potassium 4.6 MMOL/L (3.5-5.1)
[2022-10-21] MEDS: ONDANSETRON 4 MG/2 ML VIAL IV PRN (09:24)
[2022-10-21] MEDS: INSULIN LISPRO 100 UNIT/ML SUBCUT SCH ×4 (10:04→22:02)
[2022-10-21] MEDS: CYANOCOBALAMIN 1000 MCG/1 ML VIAL IM SCH (10:05)
[2022-10-21] MEDS: RIFAXIMIN 550 MG TABLET PO SCH ×2 (10:05→21:58)
[2022-10-21] MEDS: FUROSEMIDE 40 MG TABLET PO SCH (10:05)
[2022-10-21] MEDS: SPIRONOLACTONE 50 MG TABLET PO SCH ×2 (10:05→21:58)
[2022-10-21] MEDS: PANTOPRAZOLE 40 MG VIAL IV SCH (10:06)
[2022-10-21] MEDS: APIXABAN 5 MG TABLET PO SCH (10:06)
[2022-10-21] MEDS: MONTELUKAST 10 MG TABLET PO SCH (10:06)
[2022-10-21] MEDS: LACTULOSE 20 GM/30 ML UDCUP PO SCH ×3 (10:07→22:03)
[2022-10-21] MEDS: ZINC OXIDE 16% PASTE 57 GM TUBE TOP SCH ×2 (10:07→21:59)
[2022-10-21] MEDS: NYSTATIN CREAM 15 GM TUBE TOP SCH ×2 (10:07→22:02)
[2022-10-21] MEDS ORDERED: TUBERCULIN SKIN TEST 0.1 ML SYRINGE INTRADERM ONE (11:00)
[2022-10-22 05:36] LABS: Basophils % 0.3 % (0.0-0.8); Eosinophils # 0.2 10*3/uL (0.0-0.87); Eosinophils % 3.9 % (0.00-10.9); Hematocrit 28.4 VOL% (35.7-47.0); Hemoglobin 9.1 GM/DL (12.0-16.0); Immature Granulocytes % 0.3 %; Immature Granulocytes Absolute 0.02 #; Lymphocytes # 1.2 10*3/uL (1.4-4.0); Mean Corpuscular Volume 97.3 FL (87-102); Mean Platelet Volume 9.6 FL (9.6-12.0); Monocytes # 0.7 10*3/uL (0.11-0.8); Monocytes % 11.9 % (1.7-12.7); Neutrophils % 63.6 % (38.7-73.9); Platelet Count 178 T/CUMM (130-400); Red Blood Count 2.92 MC/CUMM (3.8-5.5); Red Cell Distribution Width 16.7 % (9.3-17.3); White Blood Count 5.86 T/CUMM (4-12)
[2022-10-22 05:59] LABS: Calcium 7.7 MG/DL (8.5-10.1); Osmolality,Calculated 275.8 MOS/KG (273-304); Potassium 4.4 MMOL/L (3.5-5.1)
[2022-10-22] MEDS: LEVOTHYROXINE 125 MCG TABLET PO SCH (06:04)
[2022-10-22] MEDS: INSULIN LISPRO 100 UNIT/ML SUBCUT SCH ×2 (08:03→11:55)
[2022-10-22] MEDS: RIFAXIMIN 550 MG TABLET PO SCH (08:58)
[2022-10-22] MEDS: MONTELUKAST 10 MG TABLET PO SCH (08:59)
[2022-10-22] MEDS: LACTULOSE 20 GM/30 ML UDCUP PO SCH (08:59)
[2022-10-22] MEDS: APIXABAN 5 MG TABLET PO SCH (08:59)
[2022-10-22] MEDS: CYANOCOBALAMIN 1000 MCG/1 ML VIAL IM SCH (09:00)
[2022-10-22] MEDS: PANTOPRAZOLE 40 MG VIAL IV SCH (09:00)
[2022-10-22] MEDS: SPIRONOLACTONE 50 MG TABLET PO SCH (11:48)
[2022-10-22] MEDS: ZINC OXIDE 16% PASTE 57 GM TUBE TOP SCH (11:56)
[2022-10-22] MEDS: NYSTATIN CREAM 15 GM TUBE TOP SCH (11:57)
[2022-10-22 12:09] VITALS: BP 99/80
== END 2022-10-22 14:56 | DRG 433 ==
LOC: N.ED 14:24 → SUATTDRO 18:21 → N.EDINP 18:21 → N.2E 10-13 06:38
PROVIDERS: ADMIT Hospitalist; ATTEND Family Medicine